=== PATIENT | female | born 1965 | race Caucasian/White ===

== ENCOUNTER 2016-09-21 16:35 | Emergency (ER) | payer BC ==
[2016-09-21 17:08] VITALS: BP 127/78
--- NOTE | 2016-09-21 17:10 | EDM.PDOC ---
ED HPI Trauma - General Chief Complaint: Upper Extremity Injury/Pain Stated Complaint: PAIN RT HAND Time Seen by Provider: 09/21/16 16:51 - History of Present Illness INITIAL COMMENTS - FREE TEXT/NARRATIVE: HISTORY AND PHYSICAL: History of present illness: Patient 31-year-old female presents with cervical pain and swelling of her right hand that occurred when she was lifting a box he states he felt a pop and now has an area of fullness between her second and third interdigital space on the dorsal aspect of her right knee and associated pain she has some limited range of motion secondary to discomfort. Review of systems: As per history of present illness and below otherwise all systems reviewed and negative. Past medical history: As per history of present illness and as reviewed below otherwise noncontributory. Surgical history: As per history of present illness and as reviewed below otherwise noncontributory. Social history: No reported history of drug or alcohol abuse. Family history: As per history of present illness and as reviewed below otherwise noncontributory. Physical exam: HEENT: Atraumatic, normocephalic, pupils reactive, negative for conjunctival pallor or scleral icterus, mucous membranes moist, throat clear, neck supple, nontender, trachea midline. Lungs: Clear to auscultation, breath sounds equal bilaterally, chest nontender. Heart: S1S2, regular, negative for clicks, rubs, or JVD. Abdomen: Soft, nondistended, nontender. Negative for masses or hepatosplenomegaly. Negative for costovertebral tenderness. Pelvis: Stable nontender. Genitourinary: Deferred. Rectal: Deferred. Extremities: Patient has noted tenderness palpation with a fullness and slight swelling between the second and third interdigital space on the dorsal aspect of her hand CMS and neurovascular exams unremarkable Neuro: Awake, alert, oriented. Cranial nerves II through XII unremarkable. Cerebellum unremarkable. Motor and sensory unremarkable throughout. Exam nonfocal. Diagnostics: X-ray right hand Therapeutics: None Impression: #1 right hand injury Definitive disposition and diagnosis as appropriate pending reevaluation and review of above. Allergies/ADRs: Allergies cefaclor [From Ceclor] Allergy (Verified 11/02/13 13:20) Anaphylactic Shock milk Allergy (Verified 11/02/13 13:20) Airway Tightness morphine Allergy (Verified 11/02/13 13:20) Vomiting prednisone Allergy (Verified 05/21/16 09:19) Hives Home Medications: Ambulatory Orders Citalopram [Citalopram HBr] 40 mg PO DAILY 11/02/13 [Confirmed 05/26/16] Cyclobenzaprine [Flexeril] 10 mg PO TID PRN 11/02/13 [Confirmed 05/26/16] Furosemide [Lasix] 20 mg PO DAILY 11/02/13 [Confirmed 05/21/16] Albuterol Sulfate [Ventolin Hfa] 1 puff INH ASDIRECTED PRN 05/21/16 [Confirmed 05/21/16] Cyanocobalamin/FA/Pyridoxine [Folbee] 1 tab PO DAILY 05/21/16 [Confirmed ] Pantoprazole Sodium 40 mg PO DAILY 05/21/16 [Confirmed 05/21/16] Phentermine/Topiramate [Qsymia 7.5 mg-46 mg Capsule] 1 each PO DAILY 05/26/16 [ Confirmed 05/26/16] Phenylephrine/Dm/Acetaminop/Gg [Tylenol Cold & Flu Severe Cplt] 2 each PO Q4H PRN 05/26/16 [Confirmed 05/26/16] Pramipexole [Mirapex] 0.5 mg PO TID 05/26/16 [Confirmed 05/26/16] Ibuprofen [Motrin] 400 mg PO Q4H PRN #0 tablet 05/27/16 Ondansetron [Zofran ODT] 4 mg PO Q4H PRN #10 tab.dis 05/27/16 Past Medical History HEENT History: Reports: Other (see below) Other HEENT History: wears glasses Cardiovascular History: Reports: Hypertension Other Cardiovascular History: hx hypertension before losing 100lb following bariatric surgery Respiratory History: Reports: Asthma, Other (see below) Other Respiratory History: mild asthma Gastrointestinal History: Reports: GERD Genitourinary History: Reports: Renal calculus 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: , Other (see below) Other OB/BYN History: breast reduction Musculoskeletal History: Reports: Arthritis, Back pain, chronic, Fibromyalgia Psychiatric History: Reports: Anxiety, Depression Endocrine/Metabolic History: Reports: None Hematologic History: Reports: Blood transfusion(s) Other Hematologic History: states had transfusion following her tonsillectomy - Infectious Disease History Infectious Disease History: Reports: Chicken pox - Past Surgical History Head Surgeries/Procedures: Reports: None HEENT Surgical History: Reports: Tonsillectomy Cardiovascular Surgical History: Reports: None Respiratory Surgical History: Reports: None GI Surgical History: Reports: Bariatric procedure, Guy fundoplication Female Surgical History: Reports: section, Hysterectomy, Salpingo- oophorectomy Endocrine Surgical History: Reports: None Musculoskeletal Surgical History: Reports: Arthroscopic knee Other Musculoskeletal Surgeries/Procedures:: hand surgery x6 including bilat. CTR, tendon releases and bone graft to left thumb, right knee arthroscopy x2 Social & Family History - Family History Family Medical History: Noncontributory - Tobacco Use Smoking Status *Q: Former Smoker Month Tobacco Last Used: quit smoking 18 yrs ago Second Hand Smoke Exposure: No - Caffeine Use Caffeine Use: Reports: None - Alcohol Use Days Per Week of Alcohol Use: 2 Number of Drinks Per Day: 1 Total Drinks Per Week: 2 - Recreational Drug Use Recreational Drug Use: No Drug Use in Last 12 Months: No Review of Systems - Review of Systems Review Of Systems: ROS reveals no pertinent complaints other than HPI. Trauma Exam - Physical Exam Exam: See Below (See dictation) Course - Vital Signs Last Recorded V/S: Last Vital Signs Temp 36.8 C 09/21/16 16:53 Pulse 85 09/21/16 16:53 Resp 16 09/21/16 16:53 BP 127/78 09/21/16 16:53 Pulse Ox 97 09/21/16 16:53 - Orders/Labs/Meds Orders: Active Orders 24 hr Category Date Time Status Hand 2V Rt [CR] Stat Exams 09/21/16 17:08 Taken Departure - Departure Time of Disposition: 17:58 Disposition: Home, Self-Care 01 Condition: good Clinical Impression: Hand injury Referrals: Corrina Jones DO [Primary Care Provider] - Forms: ED Department Discharge Additional Instructions: The following information is given to patients seen in the emergency department who are being discharged to home. This information is to outline your options for follow-up care. We provide all patients seen in our emergency department with a follow-up referral. The need for follow-up, as well as the timing and circumstances, are variable depending upon the specifics of your emergency department visit. If you don't have a primary care physician on staff, we will provide you with a referral. We always advise you to contact your personal physician following an emergency department visit to inform them of the circumstance of the visit and for follow-up with them and/or the need for any referrals to a consulting specialist. The emergency department will also refer you to a specialist when appropriate. This referral assures that you have the opportunity for followup care with a specialist. All of these measure are taken in an effort to provide you with optimal care, which includes your followup. Under all circumstances we always encourage you to contact your private physician who remains a resource for coordinating your care. When calling for followup care, please make the office aware that this follow-up is from your recent emergency room visit. If for any reason you are refused follow-up, please contact the [facility] emergency department at and asked to speak to the emergency department charge nurse. [facility] [address] [place] [id number] Splint as directed sling as directed Rachanarin, as directed call schedule appointment with hand clinic above return as needed as discussed - My Orders Last 24 Hours: My Active Orders 09/21/16 17:08 Hand 2V Rt [CR] Stat - Assessment/Plan Last 24 Hours: My Active Orders 09/21/16 17:08 Hand 2V Rt [CR] Stat
--- NOTE | 2016-09-22 14:12 | CR ---
EXAM DATE: 09/21/16 PATIENT'S AGE: 51 Patient: JOAN GEE Facility: [place], [place] Site . Site : 1965 Study: XRay Extremity hand [id number]/28/[id number] 5:16:32 PM Ordering Physician: Noam Rogers Final Report: INDICATION: pain TECHNIQUE: 3 views of the right hand COMPARISON: None FINDINGS: Bones: No fractures or bone lesions. Joint spaces: Unremarkable. Soft tissues: Soft tissue swelling. IMPRESSION: No acute bony abnormality. Dictated by Flaco Hernandez MD @ 09/21/2016 5:37:23 PM Dictated by: Flaco Hernandez MD @ 09/21/2016 17:39:35 (Electronic Signature) Report Signed by Proxy and Original Signed Document filed in the Medical Record. MTDD
== END 2016-09-21 18:27 | disposition home or self-care (01) ==
LOC: MW.ED 16:35
DX: S69.91XA Unspecified injury of right wrist, hand and finger(s), initial encounter (principal); I10 Essential (primary) hypertension; J45.909 Unspecified asthma, uncomplicated; K21.9 Gastro-esophageal reflux disease without esophagitis; F41.8 Other specified anxiety disorders; M19.90 Unspecified osteoarthritis, unspecified site; Z98.84 Bariatric surgery status; Z98.890 Other specified postprocedural states; Z90.710 Acquired absence of both cervix and uterus; Z87.891 Personal history of nicotine dependence; Z79.899 Other long term (current) drug therapy; Z88.5 Allergy status to narcotic agent; Z88.8 Allergy status to other drugs, medicaments and biological substances; Z91.011 Allergy to milk products; X50.0XXA Overexertion from strenuous movement or load, initial encounter
CPT/HCPCS: 73120; 99283; A4566; 99282

== ENCOUNTER 2017-01-05 10:50 | Emergency (ER) | payer BC ==
[2017-01-05] MEDS ORDERED: Nitroglycerin 0.4 MG Tab.SL SL ONE (11:14)
[2017-01-05] MEDS ORDERED: Ketorolac 30 MG/ML SDV IVPUSH ONE (11:14)
[2017-01-05] MEDS ORDERED: Alum Hydrox/Mag Hydrox/Simeth 15 ML, Metoclopramide 5 MG, Lidocaine 2% 5 ML PO ONE ×3 (11:14)
[2017-01-05] MEDS ORDERED: Aspirin 81 MG Tab.Chew PO ONE (11:14)
[2017-01-05] MEDS ORDERED: Famotidine 20 MG/2 ML SDV IVPUSH ONE (11:14)
[2017-01-05 11:49] LABS: CHLORIDE,CL 108 mmol/L (98-110); SODIUM,NA 140 mmol/L (136-146)
--- NOTE | 2017-01-05 12:44 | CR ---
EXAMINATION: Two-view chest (PA and Lateral views). HISTORY: Pain. FINDINGS: The trachea is midline. The cardiomediastinal silhouette is within normal limits. No pulmonary infil trates, effusions or pneumothorax. Osseous structures appear unremarkable. IMPRESSION: No acute cardiopulmonary process.
[2017-01-05] MEDS ORDERED: Iopamidol 755 MG/ML 500 ML Multipack Bottle IVPUSH STA (13:36)
--- NOTE | 2017-01-05 13:47 | CT ---
CT of the abdomen and pelvis with contrast. HISTORY: Pain TECHNIQUE: Axial CT images were obtained of the abdomen and pelvis following administration of 100 m L of Isovue-370 in the left antecubital fossa without complication. Coronal and sagittal reconstruct ions obtained. FINDINGS: The lung bases are clear, no pleural effusion. The liver, spleen, adrenal glands, and pancreas appear unremarkable. The gallbladder is normal. Ther e is no bulky retroperitoneal lymphadenopathy or abdominal ascites. Postsurgical changes noted secon seymour to gastric bypass. The kidneys enhance and function symmetrically without evidence of obstructive uropathy. There is a punctate nonobstructing right renal stone. The large and small bowel are normal caliber without evidence of obstruction. No focal pericolonic i nflammation or stranding. The appendix appears normal. Urinary bladder is normal. No bulky pelvic ly mphadenopathy. No free pelvic fluid. No suspicious osseous bodies demonstrated. Severe joint space narrowing is noted within the left hip . IMPRESSION: 1. No acute findings demonstrated within the abdomen or pelvis. 2. Punctate nonobstructing right renal stone. 3. Postsurgical changes noted secondary to gastric bypass. 4. Severe degenerative changes and joint space narrowing within the left hip.
--- NOTE | 2017-01-05 13:54 | EDM.PDOC ---
ED HPI GENERAL MEDICAL PROBLEM - General Chief Complaint: Cardiovascular Problem Stated Complaint: CHEST PAINS Time Seen by Provider: 01/05/17 11:10 Source of Information: Reports: Patient History Limitations: Reports: No Limitations - History of Present Illness INITIAL COMMENTS - FREE TEXT/NARRATIVE: History of present illness: [51-year-old female comes in complaining of upper epigastric pain. Patient feels that his GERD but also is concerned that it could be of cardiac nature. Patient has a long-standing family history of cardiac problems were her father at 67 and her brother also in the same a drainage. Patient has a protracted history of several skin removal surgeries that she also feels could be contributory to some of this pain.] Review of systems: As per history of present illness and below otherwise all systems reviewed and negative. Past medical history: As per history of present illness and as reviewed below otherwise noncontributory. Surgical history: As per history of present illness and as reviewed below otherwise noncontributory. Social history: No reported history of drug or alcohol abuse. Family history: As per history of present illness and as reviewed below otherwise noncontributory. Physical exam: HEENT: Atraumatic, normocephalic, pupils reactive, negative for conjunctival pallor or scleral icterus, mucous membranes moist, throat clear, neck supple, nontender, trachea midline. Lungs: Clear to auscultation, breath sounds equal bilaterally, chest nontender. Heart: S1S2, regular, negative for clicks, rubs, or JVD. Abdomen: Soft, left lower quadrant pain to minimal palpation as well as right femoral pain, Negative for masses or hepatosplenomegaly. Negative for costovertebral tenderness. Pelvis: Stable nontender. Genitourinary: Deferred. Rectal: Deferred. Extremities: Atraumatic, negative for cords or calf pain. Neurovascular unremarkable. Neuro: Awake, alert, oriented. Cranial nerves II through XII unremarkable. Cerebellum unremarkable. Motor and sensory unremarkable throughout. Exam nonfocal. Skin: Areas of erythema at various scar sites the patient indicates her painful Diagnostics: [CBC, CMP, troponin, EKG, chest x-ray, CT of abdomen with contrast] Therapeutics: [] Impression: [Abdominal pain] Plan: [Follow-up with PCP, OTC antacids as Arty has] Definitive disposition and diagnosis as appropriate pending reevaluation and review of above. CHEST Pain Score (Numeric/FACES): 3 - Related Data Allergies Allergy/AdvReac Type Severity Reaction Status Date / Time cefaclor [From Ceclor] Allergy Anaphylactic Verified 01/05/17 11:12 Shock milk Allergy Airway Verified 01/05/17 11:12 Tightness morphine Allergy Vomiting Verified 01/05/17 11:12 prednisone Allergy Hives Verified 01/05/17 11:12 Home Meds: Home Meds Citalopram [Citalopram HBr] 40 mg PO DAILY 11/02/13 [History] Furosemide [Lasix] 20 mg PO DAILY 11/02/13 [History] Albuterol Sulfate [Ventolin Hfa] 1 puff INH ASDIRECTED PRN 05/21/16 [History] Cyanocobalamin/FA/Pyridoxine [Folbee] 1 tab PO DAILY 05/21/16 [History] Pramipexole [Mirapex] 0.5 mg PO TID 05/26/16 [History] Past Medical History - Past Health History Medical/Surgical History: Denies Medical/Surgical History HEENT History: Reports: Other (See Below) Other HEENT History: wears glasses Cardiovascular History: Reports: Hypertension Other Cardiovascular History: hx hypertension before losing 100lb following bariatric surgery Respiratory History: Reports: Asthma, Other (See Below) Other Respiratory History: mild asthma Gastrointestinal History: Reports: GERD Genitourinary History: Reports: Renal Calculus 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: , Other (See Below) Other OB/BYN History: breast reduction Musculoskeletal History: Reports: Arthritis, Back Pain, Chronic, Fibromyalgia Psychiatric History: Reports: Anxiety Endocrine/Metabolic History: Reports: None Hematologic History: Reports: Blood Transfusion(s) Other Hematologic History: states had transfusion following her tonsillectomy - Infectious Disease History Infectious Disease History: Reports: Chicken Pox - Past Surgical History Head Surgeries/Procedures: Reports: None Cardiovascular Surgical History: Reports: None GI Surgical History: Reports: Bariatric Procedure, Guy Fundoplication Female Surgical History: Reports: Section, Hysterectomy, Salpingo- Oophorectomy Endocrine Surgical History: Reports: None Musculoskeletal Surgical History: Reports: Arthroscopic Knee Social & Family History - Family History Family Medical History: Noncontributory - Tobacco Use Smoking Status *Q: Never Smoker Month Tobacco Last Used: quit smoking 18 yrs ago Second Hand Smoke Exposure: No - Caffeine Use Caffeine Use: Reports: None - Alcohol Use Days Per Week of Alcohol Use: 2 Number of Drinks Per Day: 1 Total Drinks Per Week: 2 - Recreational Drug Use Recreational Drug Use: No Drug Use in Last 12 Months: No ED ROS GENERAL - Review of Systems Review Of Systems: See Below (See history of present illness) ED EXAM, GENERAL - Physical Exam Exam: See Below (See history of present illness) Course - Vital Signs Last Recorded V/S: Last Vital Signs Temp 36.2 C 01/05/17 13:26 Pulse 62 01/05/17 13:26 Resp 18 01/05/17 13:26 BP 130/84 01/05/17 13:26 Pulse Ox 100 01/05/17 13:26 - Orders/Labs/Meds Orders: Active Orders 24 hr Category Date Time Status Cardiac Monitoring [RC] . DIRECTED Care 01/05/17 11:14 Ordered EKG Documentation Completion [RC] STAT Care 01/05/17 11:14 Ordered Labs: Laboratory Tests 01/05/17 01/05/17 01/05/17 Range/Units 11:05 11:05 11:05 WBC 5.91 (4.0-11.0) K/uL RBC 3.96 L (4.30-5.90) M/uL Hgb 11.0 L (12.0-16.0) g/dL Hct 34.3 L (36.0-46.0) % MCV 86.6 (80.0-98.0) fL MCH 27.8 (27.0-32.0) pg MCHC 32.1 (31.0-37.0) g/dL RDW Std Deviation 44.7 (28.0-62.0) fl RDW Coeff of Smita 14 (11.0-15.0) % Plt Count 319 (150-400) K/uL MPV 9.20 (7.40-12.00) fL Neut % (Auto) 63.2 (48.0-80.0) % Lymph % (Auto) 25.5 (16.0-40.0) % Gove % (Auto) 9.6 (0.0-15.0) % Eos % (Auto) 1.4 (0.0-7.0) % Baso % (Auto) 0.3 (0.0-1.5) % Neut # (Auto) 3.7 (1.4-5.7) K/uL Lymph # (Auto) 1.5 (0.6-2.4) K/uL Gove # (Auto) 0.6 (0.0-0.8) K/uL Eos # (Auto) 0.1 (0.0-0.7) K/uL Baso # (Auto) 0.0 (0.0-0.1) K/uL Nucleated RBC % 0.0 /100WBC Nucleated RBCs # 0 K/uL Sodium 140 (136-146) mmol/L Potassium 4.0 (3.5-5.1) mmol/L Chloride 108 (98-110) mmol/L Carbon Dioxide 24 (21-31) mmol/L BUN 19 (6.0-23.0) mg/dL Creatinine 0.9 (0.6-1.5) mg/dL Est Cr Clr Drug Dosing 63.86 mL/min Estimated GFR (MDRD) > 60.0 ml/min Glucose 80 (60-110) mg/dL Calcium 9.3 (8.8-10.8) mg/dL Total Bilirubin 0.5 (0.1-1.5) mg/dL AST 27 (5-40) IU/L ALT 31 (8-54) IU/L Alkaline Phosphatase 108 (40-150) Troponin I < 0.10 (0.0-0.29) NG/ML Total Protein 7.2 (6.0-8.0) g/dL Albumin 4.1 (3.5-5.0) g/dL Globulin 3.1 (2.0-3.5) g/dL Albumin/Globulin Ratio 1.3 (1.3-2.8) Amylase 51 (10-90) U/L Lipase 58 (7-80) U/L Urine Color Urine Appearance Urine pH (5.0-8.0) Ur Specific Harrison (1.001-1.035) Urine Protein (NEGATIVE) mg/dL Urine Glucose (UA) (NEGATIVE) mg/dL Urine Ketones (NEGATIVE) mg/dL Urine Occult Blood (NEGATIVE) Urine Nitrite (NEGATIVE) Urine Bilirubin (NEGATIVE) Urine Urobilinogen (<2.0) EU/dL Ur Leukocyte Esterase (NEGATIVE) Urine RBC (0-2/HPF) Urine WBC (0-5/HPF) Ur Epithelial Cells (NONE-FEW) Urine Bacteria (NEGATIVE) Urine HCG, Qual (NEGATIVE) 01/05/17 01/05/17 Range/Units 11:15 11:15 WBC (4.0-11.0) K/uL RBC (4.30-5.90) M/uL Hgb (12.0-16.0) g/dL Hct (36.0-46.0) % MCV (80.0-98.0) fL MCH (27.0-32.0) pg MCHC (31.0-37.0) g/dL RDW Std Deviation (28.0-62.0) fl RDW Coeff of Smita (11.0-15.0) % Plt Count (150-400) K/uL MPV (7.40-12.00) fL Neut % (Auto) (48.0-80.0) % Lymph % (Auto) (16.0-40.0) % Gove % (Auto) (0.0-15.0) % Eos % (Auto) (0.0-7.0) % Baso % (Auto) (0.0-1.5) % Neut # (Auto) (1.4-5.7) K/uL Lymph # (Auto) (0.6-2.4) K/uL Gove # (Auto) (0.0-0.8) K/uL Eos # (Auto) (0.0-0.7) K/uL Baso # (Auto) (0.0-0.1) K/uL Nucleated RBC % /100WBC Nucleated RBCs # K/uL Sodium (136-146) mmol/L Potassium (3.5-5.1) mmol/L Chloride (98-110) mmol/L Carbon Dioxide (21-31) mmol/L BUN (6.0-23.0) mg/dL Creatinine (0.6-1.5) mg/dL Est Cr Clr Drug Dosing mL/min Estimated GFR (MDRD) ml/min Glucose (60-110) mg/dL Calcium (8.8-10.8) mg/dL Total Bilirubin (0.1-1.5) mg/dL AST (5-40) IU/L ALT (8-54) IU/L Alkaline Phosphatase (40-150) Troponin I (0.0-0.29) NG/ML Total Protein (6.0-8.0) g/dL Albumin (3.5-5.0) g/dL Globulin (2.0-3.5) g/dL Albumin/Globulin Ratio (1.3-2.8) Amylase (10-90) U/L Lipase (7-80) U/L Urine Color YELLOW Urine Appearance CLEAR Urine pH 5.5 (5.0-8.0) Ur Specific Harrison 1.015 (1.001-1.035) Urine Protein NEGATIVE (NEGATIVE) mg/dL Urine Glucose (UA) NEGATIVE (NEGATIVE) mg/dL Urine Ketones NEGATIVE (NEGATIVE) mg/dL Urine Occult Blood NEGATIVE (NEGATIVE) Urine Nitrite NEGATIVE (NEGATIVE) Urine Bilirubin NEGATIVE (NEGATIVE) Urine Urobilinogen 0.2 (<2.0) EU/dL Ur Leukocyte Esterase TRACE (NEGATIVE) Urine RBC 0-2 (0-2/HPF) Urine WBC 1-3 (0-5/HPF) Ur Epithelial Cells FEW (NONE-FEW) Urine Bacteria FEW (NEGATIVE) Urine HCG, Qual NEGATIVE (NEGATIVE) Meds: Medications Discontinued Medications Generic Name Dose Route Start Last Admin Trade Name Razaq PRN Reason Stop Dose Admin Aspirin 324 mg 01/05/17 11:14 01/05/17 11:25 Aspirin PO 01/05/17 11:15 324 mg ONETIME ONE Administration Al Hydroxide/Mg Hydroxide 15 0 ml 01/05/17 11:14 01/05/17 11:31 ml/ Metoclopramide HCl 5 mg/ PO 01/05/17 11:15 1 each Lidocaine HCl 5 ml ONETIME ONE Administration Famotidine 20 mg 01/05/17 11:14 01/05/17 11:27 Pepcid IVPUSH 01/05/17 11:15 20 mg ONETIME ONE Administration Iopamidol 100 ml 01/05/17 13:36 01/05/17 13:36 Isovue Multipack-370 (76%) IVPUSH 01/05/17 13:37 100 ml ONETIME STA Administration Ketorolac Tromethamine 30 mg 01/05/17 11:14 01/05/17 11:29 Toradol IVPUSH 01/05/17 11:15 Not Given ONETIME ONE Nitroglycerin 0.4 mg 01/05/17 11:14 01/05/17 11:25 Nitrostat SL 01/05/17 11:15 0.4 mg ONETIME ONE Administration Departure - Departure Time of Disposition: 13:52 Disposition: Home, Self-Care 01 Condition: Good Clinical Impression: Gastroesophageal reflux disease Forms: ED Department Discharge Additional Instructions: The following information is given to patients seen in the emergency department who are being discharged to home. This information is to outline your options for follow-up care. We provide all patients seen in our emergency department with a follow-up referral. The need for follow-up, as well as the timing and circumstances, are variable depending upon the specifics of your emergency department visit. If you don't have a primary care physician on staff, we will provide you with a referral. We always advise you to contact your personal physician following an emergency department visit to inform them of the circumstance of the visit and for follow-up with them and/or the need for any referrals to a consulting specialist. The emergency department will also refer you to a specialist when appropriate. This referral assures that you have the opportunity for follow-up care with a specialist. All of these measure are taken in an effort to provide you with optimal care, which includes your follow-up. Under all circumstances we always encourage you to contact your private physician who remains a resource for coordinating your care. When calling for follow-up care, please make the office aware that this follow-up is from your recent emergency room visit. If for any reason you are refused follow-up, please contact the [facility] Emergency Department at and asked to speak to the emergency department charge nurse. Follow-up the primary care provider to address return to ER as needed as discussed - My Orders Last 24 Hours: My Active Orders 01/05/17 11:14 Cardiac Monitoring [RC] . DIRECTED EKG Documentation Completion [RC] STAT - Assessment/Plan Last 24 Hours: My Active Orders 01/05/17 11:14 Cardiac Monitoring [RC] . DIRECTED EKG Documentation Completion [RC] STAT
[2017-01-05 14:19] VITALS: BP 126/82
== END 2017-01-05 14:06 | disposition home or self-care (01) ==
LOC: MW.ED 10:50
DX: K21.9 Gastro-esophageal reflux disease without esophagitis (principal); I10 Essential (primary) hypertension; J45.909 Unspecified asthma, uncomplicated; M19.90 Unspecified osteoarthritis, unspecified site; Z90.710 Acquired absence of both cervix and uterus; Z90.721 Acquired absence of ovaries, unilateral; Z98.890 Other specified postprocedural states; Z79.899 Other long term (current) drug therapy; Z88.5 Allergy status to narcotic agent; Z88.8 Allergy status to other drugs, medicaments and biological substances; Z91.011 Allergy to milk products
CPT/HCPCS: 36415; 71020; 74177; 80053; 81001; 81025; 82150; 83690; 84484; 85025; 93005; 96374; 99285; A9270; Q9967; 99282

== ENCOUNTER 2018-03-08 11:32 | Inpatient (IN) | payer BC ==
[2018-03-08] MEDS ORDERED: Clindamycin Phosphate in D5W 900 MG in Premix Bag 1 BAG IV SCH ×2 (12:00)
[2018-03-08] MEDS ORDERED: fentaNYL 100 MCG/2 ML SDV ONE (12:13)
[2018-03-08] MEDS ORDERED: Glycopyrrolate 0.2 MG/ML SDV ONE (12:13)
[2018-03-08] MEDS ORDERED: Ondansetron 4 MG/2 ML SDV ONE (12:13)
[2018-03-08] MEDS ORDERED: Phenylephrine/Normal Saline 100 MCG/ML 10 ML Syringe ONE (12:13)
[2018-03-08] MEDS ORDERED: Lidocaine 2% 5 ML SDV ONE (12:13)
[2018-03-08] MEDS ORDERED: Midazolam 1 MG/ML 2 ML SDV ONE (12:13)
[2018-03-08] MEDS ORDERED: Propofol 200 MG/20 ML SDV ONE (12:13)
[2018-03-08] MEDS: Lactated Ringers 1,000 ML IV SCH ×3 (12:26→22:40)
[2018-03-08] MEDS: Clindamycin Phosphate in D5W 900 MG in Premix Bag 1 BAG IV SCH ×4 (12:47→23:04)
--- NOTE | 2018-03-08 12:58 | PCM.PREANE ---
Preanesthetic Assessment - Anesthesia/Transfusion/Family Hx Anesthesia History: Prior Anesthesia Without Reaction Family History of Anesthesia Reaction: No Transfusion History: No Prior Transfusion(s) - Review of Systems General: No Symptoms Pulmonary: No Symptoms Cardiovascular: No Symptoms Gastrointestinal: No Symptoms Neurological: No Symptoms Other: Reports: None - Physical Assessment NPO Status Date: 03/07/18 O2 Sat by Pulse Oximetry: 98 Respiratory Rate: 16 Vital Signs: Last Vital Signs Temp 36.3 C 03/08/18 12:26 Pulse 71 03/08/18 12:26 Resp 16 03/08/18 12:26 BP 131/78 03/08/18 12:26 Pulse Ox 98 03/08/18 12:26 Height: 1.6 m Weight: 91.626 kg ASA Class: 2 Mental Status: Alert & Oriented x3 Airway Class: Mallampati = 1 Dentition: Reports: Normal Dentition ROM/Head Extension: Full Lungs: Clear to Auscultation, Normal Respiratory Effort Cardiovascular: Regular Rate, Regular Rhythm - Allergies Allergies/Adverse Reactions: Allergies Allergy/AdvReac Type Severity Reaction Status Date / Time cefaclor [From Ceclor] Allergy Anaphylactic Verified 03/03/18 10:56 Shock milk Allergy Airway Verified 03/03/18 10:56 Tightness morphine Allergy Vomiting Verified 03/03/18 10:56 prednisone Allergy Hives Verified 03/03/18 10:56 - Blood Blood Available: Yes - Anesthesia Plan Pre-Op Medication Ordered: None - Acknowledgements Anesthesia Type Planned: Spinal Pt an Appropriate Candidate for the Planned Anesthesia: Yes Alternatives and Risks of Anesthesia Discussed w Pt/Guardian: Yes Pt/Guardian Understands and Agrees with Anesthesia Plan: Yes Additional Comments: PMH: htn and asthma are inactive problems, has gerd and anxiety. 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: Musculoskeletal History: Reports: Arthritis, Back Pain, Chronic, Fibromyalgia Psychiatric History: Reports: Anxiety, Depression Endocrine/Metabolic History: Reports: Obesity/BMI 30+ Hematologic History: Reports: Blood Transfusion(s) Other Hematologic History: states had transfusion following her tonsillectomy Dermatologic History: Reports: None - Infectious Disease History Infectious Disease History: Reports: Chicken Pox - Past Surgical History Head Surgeries/Procedures: Reports: None HEENT Surgical History: Reports: Tonsillectomy Cardiovascular Surgical History: Reports: None Respiratory Surgical History: Reports: None GI Surgical History: Reports: Bariatric Procedure, Guy Fundoplication Other GI Surgeries/Procedures: tummy tuck Female Surgical History: Reports: Breast Reduction, Section, Hysterectomy, Salpingo-Oophorectomy Endocrine Surgical History: Reports: None Musculoskeletal Surgical History: Reports: Arthroscopic Knee, Carpal Tunnel Other Musculoskeletal Surgeries/Procedures:: hand surgery x6 including bilat. CTR, tendon releases and bone graft to left thumb, right knee arthroscopy x2 Dermatological Surgical History: Reports: Plastic Surgical Reconstruction/Repair - SUBSTANCE USE Smoking Status *Q: Former Smoker Tobacco Use Within Last Twelve Months: No Recreational Drug Use History: No - HOME MEDS Home Medications: Home Meds Citalopram [Citalopram HBr] 20 mg PO DAILY 11/02/13 [History] Furosemide [Lasix] 20 mg PO DAILY 11/02/13 [History] Albuterol Sulfate [Ventolin Hfa] 1 puff INH ASDIRECTED PRN 05/21/16 [History] Cyanocobalamin/Folic AC/Vit B6 [Folbee] 1 tab PO DAILY 05/21/16 [History] Pramipexole [Mirapex] 0.5 mg PO TID 05/26/16 [History] - CURRENT (IN HOUSE) MEDS Current Meds: Current Medications Lactated Ringer's (Ringers, Lactated) 1,000 mls @ 125 mls/hr IV ASDIRECTED JOELLE Last Admin: 03/08/18 12:26 Dose: 125 mls/hr Clindamycin Phosphate 900 mg/ (Premix) 50 mls @ 100 mls/hr IV ONETIME JOELLE Last Admin: 03/08/18 12:47 Dose: 100 mls/hr Discontinued Medications Fentanyl (Sublimaze) Confirm Administered Dose 100 mcg .ROUTE .STK-MED ONE Stop: 03/08/18 12:14 Glycopyrrolate (Robinul) Confirm Administered Dose 0.2 mg .ROUTE .STK-MED ONE Stop: 03/08/18 12:14 Clindamycin Phosphate 900 mg/ (Premix) 50 mls @ 100 mls/hr IV ONETIME JOELLE Lidocaine (Xylocaine-Mpf 2%) Confirm Administered Dose 5 ml .ROUTE .STK-MED ONE Stop: 03/08/18 12:14 Midazolam HCl (Versed 1 Mg/Ml) Confirm Administered Dose 2 mg .ROUTE .STK-MED ONE Stop: 03/08/18 12:14 Ondansetron HCl (Zofran) Confirm Administered Dose 4 mg .ROUTE .STK-MED ONE Stop: 03/08/18 12:14 Phenylephrine HCl (Phenylephrine In Ns 100 Mcg/Ml) Confirm Administered Dose 1 mg .ROUTE .STK-MED ONE Stop: 03/08/18 12:14 Propofol (Diprivan 20 Ml) Confirm Administered Dose 200 mg .ROUTE .STK-MED ONE Stop: 03/08/18 12:14 Tranexamic Acid (Cyklokapron) 2,000 mg IV ONETIME ONE Stop: 03/08/18 12:01
[2018-03-08] MEDS ORDERED: Sodium Chloride 0.9% 20 ML ONE (13:19)
[2018-03-08] MEDS ORDERED: ceFAZolin 1 GM Vial ONE (13:19)
--- NOTE | 2018-03-08 15:04 | PCM.OPNOTE ---
- General Post-Op/Procedure Note Date of Surgery/Procedure: 03/08/18 Operative Procedure(s): left anterior total hip arthroplasty Findings: severe OA Pre Op Diagnosis: left hip osteoarthritis Post-Op Diagnosis: same Anesthesia Technique: General LMA, Spinal Primary Surgeon: Miah Mathew Mai Animal Nurse: Ingrid Alvarez Pathology: femoral head EBL in mLs: 300 Complications: none Condition: Good
[2018-03-08] MEDS ORDERED: diphenhydrAMINE 25 MG Cap PO PRN (15:10)
[2018-03-08] MEDS ORDERED: HYDROmorphone 1 MG/ML Syringe IVPUSH PRN (15:10)
[2018-03-08] MEDS ORDERED: Acetaminophen/HYDROcodone 325-5 MG Tab PO PRN (15:10)
[2018-03-08] MEDS ORDERED: Aluminum Hydroxide/Magnesium Hydroxide/Simethicone Susp 30 ML Cup PO PRN (15:10)
[2018-03-08] MEDS ORDERED: Bisacodyl 10 MG Supp RECTAL PRN (15:10)
[2018-03-08] MEDS ORDERED: Ketorolac 30 MG/ML SDV IVPUSH PRN (15:10)
[2018-03-08] MEDS ORDERED: Ondansetron 4 MG/2 ML SDV IV PRN (15:10)
[2018-03-08] MEDS ORDERED: Albuterol 8 GM Inhaler INH PRN (15:11)
[2018-03-08] MEDS ORDERED: Promethazine 25 MG/ML SDV ONE (15:32)
[2018-03-08] MEDS: Acetaminophen 325 MG Tab PO PRN ×2 (17:42→22:40)
[2018-03-08] MEDS: Docusate Sodium 100 MG Cap PO SCH (20:42)
[2018-03-08] MEDS: Pramipexole 0.25 MG Tab PO SCH (21:23)
--- NOTE | 2018-03-08 23:14 | OR ---
SURGEON: Miah Correa MD DATE OF PROCEDURE: 03/08/2018 OPERATIONS RESEARCH SCIENTIST: Ingrid Alvarez PA-C. PREOPERATIVE DIAGNOSIS: Left hip osteoarthritis. POSTOPERATIVE DIAGNOSIS: Left hip osteoarthritis. OPERATION PERFORMED: Left anterior total hip arthroplasty. ANESTHESIA: Spinal and general. COMPLICATIONS: None. ESTIMATED BLOOD LOSS: 10 mL. SPECIMENS: Femoral head. IMPLANTS: Ace Continuum trabecular metal shell with cluster holes, 54 mm outer diameter, one 6.5 x 30 mm length bone screw; Vivacit-E neutral liner, 36 mm inner diameter; M/L Taper press-fit stem, size 9 extended offset, reduced neck length, Biolox delta femoral head 36 mm diameter, -3.5 neck length. INDICATIONS: The patient is a 52-year-old female with severe arthritis. She has failed conservative management due to modification therapy, injections, current pain on daily basis hindering activities, which undergo above procedure. She understands the risks, benefits, complications, including infection, neurovascular injury, continued pain, DVT, PE, stroke, [place], , leg-length discrepancy, fracture, dislocation, she wished to proceed. PROCEDURE IN DETAIL: The patient was seen in the preoperative area. Operative extremity was marked. The patient was transferred to operating room where spinal anesthetic was given. She was placed supine on Colon table and general anesthesia was induced. An LMA was placed. She received preop antibiotics, clindamycin 2 g TXA. Legs were placed in leg bars on Colon table with a narrow perineal post. Left hip was prepped and draped fashion in usual sterile fashion using alcohol followed by ChloraPrep. A formal time-out was taken identifying correct patient, procedure and extremity. An 8 to 9 cm incision starting just laterally ASIS going obliquely down the femur was made. Dissection was carried down to subcu tissues. Hemostasis was obtained. Fascia overlying the TFL lateral to lateral femoral cutaneous was opened and the interval between TFL and sartorius deep between abductors and rectus was opened. The anterior vessels were coagulated and the vastus lateralis fascia was opened. A deep Miguelangel tractor was placed. The indirect head of the rectus was released and the capsule was held and tagged with suture and then the deep retractors were placed. Neck was kept in saddle region 1 cm above the lesser trochanter and the head was removed. There was severe arthritis with severe synovitis within the hip with complete obliteration of the joint. The labral remnants were removed as well as the pulvinar and then the head measured about 48 to 49 mm and sequential reaming from 47 up to 53 mm was made going slightly superior and medially with excellent press fit. Once the bed was planned to make sure its level and then a Continuum trabecular metal shell with cluster holes was impacted with screw hole straight superiorly in 40 degrees abduction and 10 degrees of anteversion. Excellent press fit. There was no uncovering of the cup anteriorly. One straight superior bone screw was placed after drilling. The wound was irrigated out. The neutral liner was impacted. Leg was externally rotated, abducted, and extended. Superior capsule obturator, internus, and piriformis were released. Central canal finder was utilized and hip was sequentially broached up to size 10, which had a little proud above the neck cut. Trial was reduced neck length, extended offset based on preoperative templating the zero neck. This showed the hip to be long, but the offset to be slightly increased. Therefore, the hip was dislocated. Size 9 extended offset reduced neck length stem was impacted following the [place] version. The hip was trial reduced with a zero neck length. Printed overlay technique with the opposite side with fluoroscopy showed the hip to be slightly longer, so the hip was dislocated. After cleaning the Zhang taper, a 36 mm diameter head -3.5 neck length was impacted. Hip was then reduced. There was stable range of motion with no Shuck and two tag sutures were tied together. Wound was irrigated. The fascia was closed with #1 Vicryl, subcutaneous tissues with 2-0 Stratafix, skin with running 4-0 Monocryl, Dermabond tape, and Aquacel dressing. Patient was extubated in the operative room and transferred to the recovery room in stable condition. Sponge and needle counts were correct at the end of the case. No complications. The patient will take aspirin for DVT prophylaxis and weightbearing as tolerated. HENRI DOBBINS /[id number]
[2018-03-09] MEDS: Acetaminophen 325 MG Tab PO PRN ×3 (03:28→14:22)
[2018-03-09] MEDS: Pramipexole 0.25 MG Tab PO SCH ×2 (05:16→14:23)
[2018-03-09] MEDS: Lactated Ringers 1,000 ML IV SCH (07:05)
[2018-03-09] MEDS: Clindamycin Phosphate in D5W 900 MG in Premix Bag 1 BAG IV SCH ×4 (07:05→07:09)
--- NOTE | 2018-03-09 07:28 | PCM48HPAN ---
Post Anesthesia Note - EVALUATION WITHIN 48HRS OF ANESTHETIC Vital Signs in Normal Range: Yes Patient Participated in Evaluation: Yes Respiratory Function Stable: Yes Airway Patent: Yes Cardiovascular Function Stable: Yes Hydration Status Stable: Yes Pain Control Satisfactory: Yes Nausea and Vomiting Control Satisfactory: Yes Mental Status Recovered: Yes Resp Rate: 17
[2018-03-09] MEDS ORDERED: Sodium Chloride 0.9% 10 ML Syringe FLUSH PRN (07:32)
[2018-03-09] MEDS ORDERED: Sodium Chloride 0.9% 2.5 ML Syringe FLUSH PRN (07:32)
--- NOTE | 2018-03-09 07:35 | PCM.SN ---
- Free Text/Narrative Note: Subjective: Overall patient is doing well she has been up ambulating slightly. She still having a lot of pain. She is taking Tylenol only for pain. He wishes to have her [place] out. She is tolerating by mouth with no issues. She is not lightheaded Objective: Afebrile, vital signs stable Dressing is clean/dry/intact with no signs of discharge. She has minimal swelling in the thigh and none distally. There is normal sensation and motor with palpable pulses distally. Hemoglobin 9.7 A/P: POD #1 left SHANE with acute on chronic blood loss anemia - We'll watch hemoglobin. - Full weightbearing with walker and physical therapy - Aspirin for DVT prophylaxis - She does well she may leave later today otherwise likely tomorrow.
[2018-03-09] MEDS ORDERED: Citalopram 20 MG Tab PO SCH (09:00)
[2018-03-09] MEDS ORDERED: CYANOCOBALAMIN PO SCH (09:00)
[2018-03-09] MEDS ORDERED: VIT B6 PO SCH (09:00)
[2018-03-09] MEDS ORDERED: Aspirin 325 MG Tab PO SCH (09:00)
[2018-03-09] MEDS ORDERED: Furosemide 20 MG Tab PO SCH (09:00)
[2018-03-09] MEDS ORDERED: Pantoprazole 40 MG Tab.CR PO SCH (09:00)
[2018-03-09] MEDS ORDERED: Celecoxib 100 MG Cap PO SCH (09:00)
[2018-03-09] MEDS ORDERED: Famotidine 20 MG Tab PO SCH (09:00)
[2018-03-09] MEDS ORDERED: FOLIC AC PO SCH (09:00)
--- NOTE | 2018-03-09 09:24 | CR ---
EXAMINATION: Left hip HISTORY: Arthroplasty COMPARISON: 02/06/2018 TECHNIQUE: 3 views FINDINGS/IMPRESSION: Operative control films demonstrate placement of left total hip hardware in good position and alignment.
[2018-03-09] MEDS: Docusate Sodium 100 MG Cap PO SCH (10:02)
[2018-03-09 17:11] VITALS: BP 150/75
--- NOTE | 2018-03-09 17:54 | PCM.DCSUM1 ---
Discharge Summary - Hospital Course HPI Initial Comments: Patient is admitted for elective left hip replacement Diagnosis: Stroke: No - Discharge Data Discharge Date: 03/09/18 Discharge Disposition: Home, Self-Care 01 Condition: Good - Patient Summary/Data Operative Procedure(s) Performed: left anterior total hip arthroplasty Consults: Consultations 03/08/18 15:09 PT Evaluation and Treatment [CONS] Routine Hospital Course: Patient was admitted for elective left hip replacement. Postoperatively she was admitted to the floor where her diet was was advanced. He participated in physical therapy with weightbearing as tolerated with a walker. Her hemoglobin did decrease but was not symptomatic. She did well and was subsequently discharged home on postoperative day #1 with Celebrex. - Patient Instructions Diet: Usual Diet as Tolerated Activity: Apply Ice, As Tolerated, Full Weight Bearing Driving, Other: may drive when able Showering/Bathing: May Shower Wound/Incision Care: Do NOT Change Dressing Notify Provider of: Fever, Swelling and Redness, Drainage - Discharge Plan *PRESCRIPTION DRUG MONITORING PROGRAM REVIEWED*: Yes *COPY OF PRESCRIPTION DRUG MONITORING REPORT IN PATIENT [place]: No Home Medications: Home Meds Citalopram [Citalopram HBr] 20 mg PO DAILY 11/02/13 [History] Furosemide [Lasix] 20 mg PO DAILY 11/02/13 [History] Albuterol Sulfate [Ventolin Hfa] 1 puff INH ASDIRECTED PRN 05/21/16 [History] Cyanocobalamin/Folic AC/Vit B6 [Folbee] 1 tab PO DAILY 05/21/16 [History] Pramipexole [Mirapex] 0.5 mg PO TID 05/26/16 [History] Pantoprazole Sodium 40 mg PO DAILY 03/08/18 [History] Patient Handouts: Total Hip Replacement, [id number], Aspirin, ASA oral tablets, Total Hip Replacement, Care After, [id number] Referrals: Ingrid Alvarez PA [Physician Termite Exterminator Helper] - 03/08/18 1:20 pm - Discharge Summary/Plan Comment DC Time >30 min.: No - Patient Data Vitals - Most Recent: Last Vital Signs Temp 36.9 C 03/09/18 17:00 Pulse 71 03/09/18 17:00 Resp 20 03/09/18 17:00 BP 150/75 H 03/09/18 17:00 Pulse Ox 99 03/09/18 17:00 Weight - Most Recent: 91.626 kg I&O - Last 24 hours: Intake & Output 03/09/18 03/09/18 03/09/18 06:59 14:59 22:59 Intake Total 325 560 Output Total 800 Balance -475 560 Lab Results - Last 24 hrs: Laboratory Results - last 24 hr 03/09/18 Range/Units 05:20 Hgb 9.7 L (12.0-16.0) g/dL Hct 29.9 L (36.0-46.0) % Med Orders - Current: Current Medications Acetaminophen (Tylenol) 650 mg PO Q4H PRN PRN Reason: Pain Last Admin: 03/09/18 14:22 Dose: 650 mg Hydrocodone Bitart/Acetaminophen ([place] 325-5 Mg) 1 - 2 tab PO Q4H PRN PRN Reason: Pain Al Hydroxide/Mg Hydroxide (Mag-Al Plus) 30 ml PO Q4H PRN PRN Reason: indigestion Albuterol (Ventolin Hfa) 8 gm INH ASDIRECTED PRN PRN Reason: Shortness of Breath Aspirin (Aspirin) 325 mg PO BID [facility] Last Admin: 03/09/18 10:02 Dose: 325 mg Bisacodyl (Dulcolax) 10 mg RECTAL DAILY PRN PRN Reason: Constipation Celecoxib (Celebrex) 200 mg PO DAILY [facility] Last Admin: 03/09/18 10:02 Dose: 200 mg Citalopram Hydrobromide (Celexa) 20 mg PO DAILY [facility] Last Admin: 03/09/18 10:03 Dose: 20 mg Diphenhydramine HCl (Benadryl) 25 - 50 mg PO Q6H PRN PRN Reason: Itching Docusate Sodium (Colace) 100 mg PO BID [facility] Last Admin: 03/09/18 10:02 Dose: 100 mg Famotidine (Pepcid) 40 mg PO DAILY [facility] Last Admin: 03/09/18 10:02 Dose: 40 mg Furosemide (Lasix) 20 mg PO DAILY [facility] Last Admin: 03/09/18 10:02 Dose: 20 mg Hydromorphone HCl (Dilaudid) 0.5 - 1 mg IVPUSH Q3H PRN PRN Reason: Pain Ondansetron HCl (Zofran) 4 mg IV Q6HR PRN PRN Reason: NAUSEA/VOMITING Pantoprazole Sodium (Protonix) 40 mg PO DAILY [facility] Last Admin: 03/09/18 10:02 Dose: 40 mg Cyanocobalamin/Folic Ac/Vit B6 [Folbee] 1 Tab 1 each PO DAILY [facility] Last Admin: 03/09/18 11:12 Dose: Not Given Pramipexole Dihydrochloride (Mirapex) 0.5 mg PO TID [facility] Last Admin: 03/09/18 14:23 Dose: 0.5 mg Sodium Chloride (Saline Flush) 10 ml FLUSH ASDIRECTED PRN PRN Reason: Keep Vein Open Sodium Chloride (Saline Flush) 2.5 ml FLUSH ASDIRECTED PRN PRN Reason: Keep Vein Open Discontinued Medications Cefazolin Sodium (Ancef) Confirm Administered Dose 2 gm .ROUTE .STK-MED ONE Stop: 03/08/18 13:20 Fentanyl (Sublimaze) Confirm Administered Dose 100 mcg .ROUTE .STK-MED ONE Stop: 03/08/18 12:14 Glycopyrrolate (Robinul) Confirm Administered Dose 0.2 mg .ROUTE .STK-MED ONE Stop: 03/08/18 12:14 Clindamycin Phosphate 900 mg/ (Premix) 50 mls @ 100 mls/hr IV ONETIME [facility] Lactated Ringer's (Ringers, Lactated) 1,000 mls @ 125 mls/hr IV ASDIRECTED [facility] Last Infusion: 03/09/18 06:40 Dose: Infused Clindamycin Phosphate 900 mg/ (Premix) 50 mls @ 100 mls/hr IV ONETIME [facility] Last Admin: 03/09/18 07:05 Dose: 100 mls/hr Sodium Chloride (Normal Saline) Confirm Administered Dose 20 mls @ as directed .ROUTE .STK-MED ONE Stop: 03/08/18 13:20 Clindamycin Phosphate 900 mg/ (Premix) 50 mls @ 100 mls/hr IV Q8H [facility] Stop: 03/09/18 08:28 Last Admin: 03/09/18 07:09 Dose: 100 mls/hr Ketorolac Tromethamine (Toradol) 30 mg IVPUSH Q6H PRN PRN Reason: Pain Stop: 03/09/18 05:00 Lidocaine (Xylocaine-Mpf 2%) Confirm Administered Dose 5 ml .ROUTE .STK-MED ONE Stop: 03/08/18 12:14 Midazolam HCl (Versed 1 Mg/Ml) Confirm Administered Dose 2 mg .ROUTE .STK-MED ONE Stop: 03/08/18 12:14 Ondansetron HCl (Zofran) Confirm Administered Dose 4 mg .ROUTE .STK-MED ONE Stop: 03/08/18 12:14 Phenylephrine HCl (Phenylephrine In Ns 100 Mcg/Ml) Confirm Administered Dose 1 mg .ROUTE .STK-MED ONE Stop: 03/08/18 12:14 Promethazine HCl (Phenergan) Confirm Administered Dose 25 mg .ROUTE .STK-MED ONE Stop: 03/08/18 15:33 Last Admin: 03/08/18 16:08 Dose: 25 mg Propofol (Diprivan 20 Ml) Confirm Administered Dose 200 mg .ROUTE .STK-MED ONE Stop: 03/08/18 12:14 Tranexamic Acid (Cyklokapron) 2,000 mg IV ONETIME ONE Stop: 03/08/18 12:01 Last Admin: 03/08/18 19:32 Dose: Not Given Tranexamic Acid (Cyklokapron) Confirm Administered Dose 2,000 mg .ROUTE .STK- MED ONE Stop: 03/09/18 09:26
== END 2018-03-09 18:20 | disposition home or self-care (01) | DRG 301 ==
LOC: MW.MS 11:32
PROVIDERS: ADMIT Orthopaedic Surgery; ATTEND Orthopaedic Surgery
PROC: 0SRB0JZ Replacement of Left Hip Joint with Synthetic Substitute, Open Approach (ICD-10-PCS; principal; 2018-03-08)
DX: M16.12 Unilateral primary osteoarthritis, left hip (principal); I10 Essential (primary) hypertension; J45.909 Unspecified asthma, uncomplicated; K21.9 Gastro-esophageal reflux disease without esophagitis; M79.7 Fibromyalgia; F41.9 Anxiety disorder, unspecified; F32.9 Major depressive disorder, single episode, unspecified; R42 Dizziness and giddiness; R73.03 Prediabetes; Z88.5 Allergy status to narcotic agent; Z87.11 Personal history of peptic ulcer disease; Z87.442 Personal history of urinary calculi; Z88.8 Allergy status to other drugs, medicaments and biological substances; Z79.899 Other long term (current) drug therapy; Z87.891 Personal history of nicotine dependence
CPT/HCPCS: 36415; 76000; 76000-26; 85014; 85018; 97110-GP; 97116-GP; 97161-GP; A9270-GY; C1713; C1776; J0690; J2250; J2370; J2405; J2550; J2704; J3010; J3490; J7120

== ENCOUNTER 2019-03-15 10:58 | Emergency (ER) | payer BC, OTHER ==
[2019-03-15] MEDS ORDERED: Diphtheria,Pertussis(Acell),Tetanus Vaccine 0.5 ML Syringe IM ONE (11:00)
[2019-03-15] MEDS ORDERED: Bacitracin Oint 1 GM U/D Packet TOP ONE (11:00)
--- NOTE | 2019-03-15 11:12 | EDM.PDOC ---
ED HPI GENERAL MEDICAL PROBLEM - General Chief Complaint: Laceration Stated Complaint: GASH IN FINGER Time Seen by Provider: 03/15/19 10:59 Source of Information: Reports: Patient History Limitations: Reports: No Limitations - History of Present Illness INITIAL COMMENTS - FREE TEXT/NARRATIVE: HISTORY AND PHYSICAL: History of present illness: Patient is a 53-year-old female who presents to the emergency room today with complaints of a laceration to the palmar surface of the right fourth digit. She states she was moving a broken toilet bowl when the porcelain had slid and lacerated her finger. She denies any other extremity involvement. Does have to apply pressure for Patient denies any fever, chills, headache, change in vision , syncope or near syncope. Denies any chest pain, back pain, shortness of breath or cough. Denies any GI or symptoms. Patient has been eating and drinking appropriately. Review of systems: As per history of present illness and below otherwise all systems reviewed and negative. Past medical history: As per history of present illness and as reviewed below otherwise noncontributory. Surgical history: As per history of present illness and as reviewed below otherwise noncontributory. Social history: See social history for further information Family history: As per history of present illness and as reviewed below otherwise noncontributory. Physical exam: General: Well-developed and well-nourished 53-year-old female. Alert and oriented. Nontoxic appearing and in no acute distress. HEENT: Atraumatic, normocephalic, pupils equal and reactive bilaterally, negative for conjunctival pallor or scleral icterus, mucous membranes moist, trachea midline. No drooling or trismus noted. No meningeal signs. No hot potato voice noted. Lungs: Clear to auscultation, breath sounds equal bilaterally, chest nontender. Heart: S1S2, regular rate and rhythm without overt murmur Abdomen: Soft, nondistended, nontender. Skin: 2 cm laceration to the mid right fourth digit. Appears to have no tendon involvement. She does have a numbing sensation adjacent to the laceration. No distal finger numbness or tingling. Otherwise skin is intact, warm, dry. No lesions or rashes noted. Extremities: See skin for details, no tendon injury involved with the affected finger, moves all extremities per self without difficulty or deficits, negative for cords or calf pain. Neurovascular unremarkable. Neuro: Awake, alert, oriented. Cranial nerves II through XII unremarkable. Cerebellum unremarkable. Motor and sensory unremarkable throughout. Exam nonfocal. Notes: Chlorhexidine and wound wash were used to cleanse the area. One percent lidocaine was used to anesthetize the laceration site. Usual and customary procedures were followed for suture placement. 4-0 nylon, #6 interrupted sutures were placed. Bleeding has stopped. Bacitracin nonstick dressing was applied. Supportive care measures were reviewed and discussed. Voices understanding and is agreeable to plan of care. Denies any further questions or concerns at this time. Diagnostics: None Therapeutics: 1% lidocaine, wound care, bacitracin dressing,Tdap Prescription: None Impression: Laceration Plan: 1. Keep the area clean and dry. Continue to monitor for signs of infection. Sutures to be removed in 7-10 days. 2. Tylenol and/or ibuprofen as needed for pain management. 3. Follow-up with the hand surgeon as we discussed. Return to the ED as needed and as discussed. Definitive disposition and diagnosis as appropriate pending reevaluation and review of above. right middle finger Pain Score (Numeric/FACES): 7 - Related Data Allergies Allergy/AdvReac Type Severity Reaction Status Date / Time cefaclor [From Ceclor] Allergy Anaphylactic Verified 03/03/18 10:56 Shock milk Allergy Airway Verified 03/03/18 10:56 Tightness morphine Allergy Vomiting Verified 03/03/18 10:56 prednisone Allergy Hives Verified 03/03/18 10:56 sulfamethoxazole Allergy Anaphylactic Verified 03/15/19 11:11 [From Bactrim] Shock trimethoprim [From Bactrim] Allergy Anaphylactic Verified 03/15/19 11:11 Shock steroids Allergy Anaphylactic Uncoded 03/15/19 11:11 Shock Home Meds: Home Meds Citalopram [Citalopram HBr] 20 mg PO DAILY 11/02/13 [History] Furosemide [Lasix] 20 mg PO DAILY 11/02/13 [History] Albuterol Sulfate [Ventolin Hfa] 1 puff INH ASDIRECTED PRN 05/21/16 [History] Cyanocobalamin/Folic AC/Vit B6 [Folbee] 1 tab PO DAILY 05/21/16 [History] Pramipexole [Mirapex] 0.5 mg PO TID 05/26/16 [History] Pantoprazole Sodium 40 mg PO DAILY 03/08/18 [History] Past Medical History - Past Health History Medical/Surgical History: Denies Medical/Surgical History HEENT History: Reports: Other (See Below) Other HEENT History: wears glasses Cardiovascular History: Reports: Hypertension Other Cardiovascular History: hx hypertension before losing 100lb following bariatric surgery Respiratory History: Reports: Asthma, Other (See Below) Other Respiratory History: mild asthma Gastrointestinal History: Reports: GERD Genitourinary History: Reports: Renal Calculus [employer] History: Reports: Musculoskeletal History: Reports: Arthritis, Back Pain, Chronic, Fibromyalgia Psychiatric History: Reports: Anxiety, Depression Endocrine/Metabolic History: Reports: Obesity/BMI 30+ Hematologic History: Reports: Blood Transfusion(s) Other Hematologic History: states had transfusion following her tonsillectomy Dermatologic History: Reports: None - Infectious Disease History Infectious Disease History: Reports: Chicken Pox - Past Surgical History Head Surgeries/Procedures: Reports: None HEENT Surgical History: Reports: Tonsillectomy Cardiovascular Surgical History: Reports: None Respiratory Surgical History: Reports: None GI Surgical History: Reports: Bariatric Procedure, Guy Fundoplication Other GI Surgeries/Procedures: tummy tuck Female Surgical History: Reports: Breast Reduction, Section, Hysterectomy, Salpingo-Oophorectomy Endocrine Surgical History: Reports: None Musculoskeletal Surgical History: Reports: Arthroscopic Knee, Carpal Tunnel Other Musculoskeletal Surgeries/Procedures:: hand surgery x6 including bilat. CTR, tendon releases and bone graft to left thumb, right knee arthroscopy x2 Dermatological Surgical History: Reports: Plastic Surgical Reconstruction/Repair Social & Family History - Family History Family Medical History: Noncontributory - Caffeine Use Caffeine Use: Reports: None ED ROS GENERAL - Review of Systems Review Of Systems: ROS reveals no pertinent complaints other than HPI. ED EXAM, SKIN/RASH Exam: See Below (See dictation) ED SKIN PROCEDURES - Laceration/Wound Repair Right 4th digit Appearance: Subcutaneous, Linear Distal NVT: Neuro & Vascular Intact, No Tendon Injury Anesthetic Type: Local Local Anesthesia - Lidocaine (Xylocaine): 1% Plain Local Anesthetic Volume: 2cc Skin Prep: Chlorhexidine (Hibiciens), Saline, Sterile Drape Saline Irrigation (cc's): 50 Exploration/Debridement/Repair: Wound Explored, In a Bloodless Field, Explored to Base, No Foreign Material Found Closed with: Sutures Lac/Wound length In cm: 2 Suture Size: 4-0 # of Sutures: 6 Suture Type: Prolene, Silk, Interrupted, Simple Drain Placement: No Sterile Dressing Applied: Provider Tetanus Status Addressed: Yes Complications: No Course - Vital Signs Last Recorded V/S: Last Vital Signs Temp 95.8 F 03/15/19 11:07 Pulse 88 03/15/19 11:07 Resp 16 03/15/19 11:07 BP 149/85 H 03/15/19 11:07 Pulse Ox 98 03/15/19 11:07 - Orders/Labs/Meds Orders: Active Orders 24 hr Category Date Time Status Vaccines to be Administered [RC] PER UNIT ROUTINE Care 03/15/19 11:00 Active Meds: Medications Discontinued Medications Generic Name Dose Route Start Last Admin Trade Name Freq PRN Reason Stop Dose Admin Bacitracin 1 dose 03/15/19 11:00 03/15/19 11:16 Bacitracin Oint 1 Gm TOP 03/15/19 11:01 1 dose ONETIME ONE Administration Diphtheria/Tetanus/Acell Pertussis 0.5 ml 03/15/19 11:00 03/15/19 11:16 Adacel IM 03/15/19 11:01 0.5 ml .ONCE ONE Administration Lidocaine HCl 5 ml 03/15/19 11:00 03/15/19 11:16 Xylocaine-Mpf 1% INJECT 03/15/19 11:01 5 ml ONETIME ONE Administration Departure - Departure Time of Disposition: 11:23 Disposition: Home, Self-Care 01 Clinical Impression: Laceration - Discharge Information Instructions: Laceration Care, Adult, [id number] Referrals: PCP,None [Primary Care Provider] - Forms: ED Department Discharge Additional Instructions: The following information is given to patients seen in the emergency department who are being discharged to home. This information is to outline your options for follow-up care. We provide all patients seen in our emergency department with a follow-up referral. The need for follow-up, as well as the timing and circumstances, are variable depending upon the specifics of your emergency department visit. If you don't have a primary care physician on staff, we will provide you with a referral. We always advise you to contact your personal physician following an emergency department visit to inform them of the circumstance of the visit and for follow-up with them and/or the need for any referrals to a consulting specialist. The emergency department will also refer you to a specialist when appropriate. This referral assures that you have the opportunity for follow-up care with a specialist. All of these measure are taken in an effort to provide you with optimal care, which includes your follow-up. Under all circumstances we always encourage you to contact your private physician who remains a resource for coordinating your care. When calling for follow-up care, please make the office aware that this follow-up is from your recent emergency room visit. If for any reason you are refused follow-up, please contact the [facility] Emergency Department at and asked to speak to the emergency department charge nurse. [facility] [address] [place], [place] [id number] [place] [address] 1. Keep the area clean and dry. Continue to monitor for signs of infection. Sutures to be removed in 7-10 days. 2. Tylenol and/or ibuprofen as needed for pain management. 3. Follow-up with the hand surgeon as we discussed. Return to the ED as needed and as discussed. - My Orders Last 24 Hours: My Active Orders 03/15/19 11:00 Vaccines to be Administered [RC] PER UNIT ROUTINE - Assessment/Plan Last 24 Hours: My Active Orders 03/15/19 11:00 Vaccines to be Administered [RC] PER UNIT ROUTINE
[2019-03-15 11:52] VITALS: BP 137/77; PULSE 80
== END 2019-03-15 11:48 | disposition home or self-care (01) ==
LOC: MW.ED 10:58
DX: S61.214A Laceration without foreign body of right ring finger without damage to nail, initial encounter (principal); K21.9 Gastro-esophageal reflux disease without esophagitis; I10 Essential (primary) hypertension; F41.9 Anxiety disorder, unspecified; F32.9 Major depressive disorder, single episode, unspecified; Z23 Encounter for immunization; E66.9 Obesity, unspecified; Z68.32 Body mass index [BMI] 32.0-32.9, adult; Z88.1 Allergy status to other antibiotic agents; Z91.011 Allergy to milk products; Z88.5 Allergy status to narcotic agent; Z88.8 Allergy status to other drugs, medicaments and biological substances; Z88.2 Allergy status to sulfonamides; Z79.899 Other long term (current) drug therapy; W26.8XXA Contact with other sharp object(s), not elsewhere classified, initial encounter
CPT/HCPCS: 12001; 90471; 90715; 99282; J2001

== ENCOUNTER 2019-05-16 13:53 | Observation (INO) | payer BC ==
[2019-05-16] MEDS ORDERED: Aspirin 81 MG Tab.Chew PO ONE (14:02)
[2019-05-16] MEDS ORDERED: Sodium Chloride 0.9% 10 ML Syringe FLUSH PRN (14:02)
[2019-05-16] MEDS ORDERED: Sodium Chloride 0.9% 2.5 ML Syringe FLUSH PRN (14:02)
--- NOTE | 2019-05-16 14:07 | EDM.PDOC ---
ED HPI GENERAL MEDICAL PROBLEM - General Chief Complaint: Chest Pain Stated Complaint: CHEST PAIN Time Seen by Provider: 05/16/19 14:05 Source of Information: Reports: Patient History Limitations: Reports: No Limitations - History of Present Illness INITIAL COMMENTS - FREE TEXT/NARRATIVE: HISTORY AND PHYSICAL: History of present illness: Patient is a 53-year-old female who presents to the emergency room today with complaints of chest pain that started approximately 10 minutes prior to arrival. She describes the pain as a sharp pressure across her midsternum and radiates into bilateral sides of her neck and down her left arm. She initially thought this was her GERD, but became concerned when involved her arm. She does have associated nausea. Chest tenderness with palpation, pain is reproducible with palpation. Patient denies any fever, chills, headache, change in vision, syncope or near syncope. Denies any back pain, shortness of breath or cough. Denies any abdominal pain, nausea, vomiting, diarrhea, constipation or dysuria. Has not noted any blood in urine or stool. Patient has been eating and drinking appropriately. Past medical history of hypertension, asthma, GERD, fibromyalgia, anxiety/ depression, and bariatric surgery. Review of systems: As per history of present illness and below otherwise all systems reviewed and negative. Past medical history: As per history of present illness and as reviewed below otherwise noncontributory. Surgical history: As per history of present illness and as reviewed below otherwise noncontributory. Social history: See social history for further information Family history: As per history of present illness and as reviewed below otherwise noncontributory. Physical exam: General: Well-developed and well-nourished 53-year-old female. Alert and oriented. Nontoxic appearing and in no acute distress. HEENT: Atraumatic, normocephalic, pupils equal and reactive bilaterally, negative for conjunctival pallor or scleral icterus, mucous membranes moist, TMs normal bilaterally, throat clear, neck supple, nontender, trachea midline. No drooling or trismus noted. No meningeal signs. No hot potato voice noted. Lungs: Clear to auscultation, breath sounds equal bilaterally, chest nontender. Heart: S1S2, regular rate and rhythm without overt murmur Abdomen: Soft, nondistended, nontender. Negative for masses or hepatosplenomegaly. Negative for costovertebral tenderness. Pelvis: Stable nontender. Skin: Intact, warm, dry. No lesions or rashes noted. Extremities: Atraumatic, moves all extremities per self without difficulty or deficits, negative for cords or calf pain. Neurovascular unremarkable. Neuro: Awake, alert, oriented. Cranial nerves II through XII unremarkable. Cerebellum unremarkable. Motor and sensory unremarkable throughout. Exam nonfocal. Notes: Patient states her chest pain is better but she now has this burning sensation in her epigastrium. Lab work is unremarkable. Chest x-ray shows no acute findings. EKG shows no acute findings. We discussed admission, which she is agreeable to. Dr. Almodovar was consulted and agreeable to further caring for this patient. Diagnostics: CBC, CMP, Troponin, EKG, CXR Therapeutics: SL, Aspirin, Protonix, GI cocktail, nitroglycerin Impression: Chest pain r/o HI Epigastric pain Plan: Observation admission with telemetry Definitive disposition and diagnosis as appropriate pending reevaluation and review of above. chest Pain Score (Numeric/FACES): 8 - Related Data Allergies Allergy/AdvReac Type Severity Reaction Status Date / Time cefaclor [From Ceclor] Allergy Anaphylactic Verified 03/03/18 10:56 Shock milk Allergy Airway Verified 03/03/18 10:56 Tightness morphine Allergy Vomiting Verified 03/03/18 10:56 prednisone Allergy Hives Verified 03/03/18 10:56 sulfamethoxazole Allergy Anaphylactic Verified 03/15/19 11:11 [From Bactrim] Shock trimethoprim [From Bactrim] Allergy Anaphylactic Verified 03/15/19 11:11 Shock steroids Allergy Anaphylactic Uncoded 03/15/19 11:11 Shock Home Meds: Home Meds Citalopram [Citalopram HBr] 20 mg PO DAILY 11/02/13 [History] Furosemide [Lasix] 20 mg PO DAILY 11/02/13 [History] Albuterol Sulfate [Ventolin Hfa] 1 puff INH ASDIRECTED PRN 05/21/16 [History] Cyanocobalamin/Folic AC/Vit B6 [Folbee] 1 tab PO DAILY 05/21/16 [History] Pramipexole [Mirapex] 0.5 mg PO TID 05/26/16 [History] Pantoprazole Sodium 40 mg PO DAILY 03/08/18 [History] Past Medical History - Past Health History Medical/Surgical History: Denies Medical/Surgical History HEENT History: Reports: Other (See Below) Other HEENT History: wears glasses Cardiovascular History: Reports: Hypertension Other Cardiovascular History: hx hypertension before losing 100lb following bariatric surgery Respiratory History: Reports: Asthma, Other (See Below) Other Respiratory History: mild asthma Gastrointestinal History: Reports: GERD Genitourinary History: Reports: Renal Calculus [employer] History: Reports: Musculoskeletal History: Reports: Arthritis, Back Pain, Chronic, Fibromyalgia Psychiatric History: Reports: Anxiety, Depression Endocrine/Metabolic History: Reports: Obesity/BMI 30+ Hematologic History: Reports: Blood Transfusion(s) Other Hematologic History: states had transfusion following her tonsillectomy Dermatologic History: Reports: None - Infectious Disease History Infectious Disease History: Reports: Chicken Pox - Past Surgical History Head Surgeries/Procedures: Reports: None HEENT Surgical History: Reports: Tonsillectomy Cardiovascular Surgical History: Reports: None Respiratory Surgical History: Reports: None GI Surgical History: Reports: Bariatric Procedure, Guy Fundoplication Other GI Surgeries/Procedures: tummy tuck Female Surgical History: Reports: Breast Reduction, Section, Hysterectomy, Salpingo-Oophorectomy Endocrine Surgical History: Reports: None Musculoskeletal Surgical History: Reports: Arthroscopic Knee, Carpal Tunnel Other Musculoskeletal Surgeries/Procedures:: hand surgery x6 including bilat. CTR, tendon releases and bone graft to left thumb, right knee arthroscopy x2 Dermatological Surgical History: Reports: Plastic Surgical Reconstruction/Repair Social & Family History - Family History Family Medical History: Noncontributory - Caffeine Use Caffeine Use: Reports: None ED ROS GENERAL - Review of Systems Review Of Systems: Comprehensive ROS is negative, except as noted in HPI. ED EXAM, GENERAL - Physical Exam Exam: See Below (See dictation) Course - Vital Signs Last Recorded V/S: Last Vital Signs Temp Pulse 85 05/16/19 14:01 Resp 15 05/16/19 14:01 BP 124/78 05/16/19 14:36 Pulse Ox 99 05/16/19 14:01 - Orders/Labs/Meds Orders: Active Orders 24 hr Category Date Time Status EKG Documentation Completion [RC] STAT Care 05/16/19 14:02 Active Sodium Chloride 0.9% [Saline Flush] Med 05/16/19 14:02 Active 10 ml FLUSH ASDIRECTED PRN Sodium Chloride 0.9% [Saline Flush] Med 05/16/19 14:02 Active 2.5 ml FLUSH ASDIRECTED PRN Saline Lock Insert [OM.PC] Stat Oth 05/16/19 14:02 Ordered Medication Orders Sodium Chloride (Saline Flush) 10 ml FLUSH ASDIRECTED PRN PRN Reason: Keep Vein Open Last Admin: 05/16/19 14:27 Dose: 10 ml Sodium Chloride (Saline Flush) 2.5 ml FLUSH ASDIRECTED PRN PRN Reason: Keep Vein Open Last Admin: 05/16/19 14:27 Dose: 2.5 ml Labs: Laboratory Tests 05/16/19 05/16/19 Range/Units 14:05 14:05 WBC 6.60 (4.0-11.0) K/uL RBC 5.07 (4.30-5.90) M/uL Hgb 14.9 (12.0-16.0) g/dL Hct 44.2 (36.0-46.0) % MCV 87.2 (80.0-98.0) fL MCH 29.4 (27.0-32.0) pg MCHC 33.7 (31.0-37.0) g/dL RDW Std Deviation 56.5 (28.0-62.0) fl RDW Coeff of Smita 18 H (11.0-15.0) % Plt Count 248 (150-400) K/uL MPV 9.30 (7.40-12.00) fL Neut % (Auto) 66.3 (48.0-80.0) % Lymph % (Auto) 24.4 (16.0-40.0) % [place] % (Auto) 8.0 (0.0-15.0) % Eos % (Auto) 1.1 (0.0-7.0) % Baso % (Auto) 0.2 (0.0-1.5) % Neut # (Auto) 4.4 (1.4-5.7) K/uL Lymph # (Auto) 1.6 (0.6-2.4) K/uL [place] # (Auto) 0.5 (0.0-0.8) K/uL Eos # (Auto) 0.1 (0.0-0.7) K/uL Baso # (Auto) 0.0 (0.0-0.1) K/uL Nucleated RBC % 0.0 /100WBC Nucleated RBCs # 0 K/uL Sodium 140 (136-145) mmol/L Potassium 4.0 (3.5-5.1) mmol/L Chloride 105 (98-107) mmol/L Carbon Dioxide 25.1 (21.0-32.0) mmol/L BUN 18 (7.0-18.0) mg/dL Creatinine 0.9 (0.6-1.0) mg/dL Est Cr Clr Drug Dosing TNP Estimated GFR (MDRD) > 60.0 ml/min Glucose 89 (74-106) mg/dL Calcium 8.9 (8.5-10.1) mg/dL Total Bilirubin 0.2 (0.2-1.0) mg/dL AST 27 (15-37) IU/L ALT 31 (14-63) IU/L Alkaline Phosphatase 128 H (46-116) U/L Troponin I < 0.050 (0.000-0.056) ng/mL Total Protein 7.9 (6.4-8.2) g/dL Albumin 4.2 (3.4-5.0) g/dL Globulin 3.7 (2.6-4.0) g/dL Albumin/Globulin Ratio 1.1 (0.9-1.6) Meds: Medications Generic Name Dose Route Start Last Admin Trade Name Silas PRN Reason Stop Dose Admin Sodium Chloride 10 ml 05/16/19 14:02 05/16/19 14:27 Saline Flush FLUSH 10 ml ASDIRECTED PRN Administration Keep Vein Open Sodium Chloride 2.5 ml 05/16/19 14:02 05/16/19 14:27 Saline Flush FLUSH 2.5 ml ASDIRECTED PRN Administration Keep Vein Open Discontinued Medications Generic Name Dose Route Start Last Admin Trade Name Freq PRN Reason Stop Dose Admin Aspirin 324 mg 05/16/19 14:02 05/16/19 14:24 Aspirin PO 05/16/19 14:03 324 mg ONETIME ONE Administration Al Hydroxide/Mg Hydroxide 15 0 ml 05/16/19 14:12 05/16/19 14:48 ml/ Metoclopramide HCl 5 mg/ PO 05/16/19 14:13 5 each Lidocaine HCl 5 ml ONETIME ONE Administration Ketorolac Tromethamine 30 mg 05/16/19 15:19 Toradol IVPUSH 05/16/19 15:20 ONETIME ONE Nitroglycerin 0.4 mg 05/16/19 14:11 05/16/19 14:36 Nitrostat SL 0.4 mg Q5M PRN Administration Chest Pain Pantoprazole Sodium 80 mg 05/16/19 14:11 05/16/19 14:25 Protonix Iv IVPUSH 05/16/19 14:12 80 mg .BOLUS ONE Administration Departure - Departure Time of Disposition: 15:28 Disposition: Refer to Observation Clinical Impression: Chest pain, rule out acute myocardial infarction, Epigastric pain Forms: ED Department Discharge - My Orders Last 24 Hours: My Active Orders 05/16/19 14:02 EKG Documentation Completion [RC] STAT Sodium Chloride 0.9% [Saline Flush] 10 ml FLUSH ASDIRECTED PRN Sodium Chloride 0.9% [Saline Flush] 2.5 ml FLUSH ASDIRECTED PRN Saline Lock Insert [OM.PC] Stat - Assessment/Plan Last 24 Hours: My Active Orders 05/16/19 14:02 EKG Documentation Completion [RC] STAT Sodium Chloride 0.9% [Saline Flush] 10 ml FLUSH ASDIRECTED PRN Sodium Chloride 0.9% [Saline Flush] 2.5 ml FLUSH ASDIRECTED PRN Saline Lock Insert [OM.PC] Stat
[2019-05-16] MEDS ORDERED: Pantoprazole 40 MG Vial IVPUSH ONE (14:11)
[2019-05-16] MEDS ORDERED: Alum Hydrox/Mag Hydrox/Simeth 15 ML, Metoclopramide 5 MG, Lidocaine 2% 5 ML PO ONE ×3 (14:12)
[2019-05-16] MEDS: Nitroglycerin 0.4 MG Tab.SL SL PRN ×3 (14:25→14:36)
--- NOTE | 2019-05-16 14:45 | CR ---
EXAM DATE: 05/16/19 PATIENT'S AGE: 53 Chest: Frontal view of the chest was obtained. Comparison: Prior chest x-ray of 01/05/17. Heart size and mediastinum are normal. Lungs are clear. Bony structures are grossly intact. Impression: 1. Nothing acute is seen on frontal chest x-ray. Diagnostic code #1 Report Signed by Proxy. AMILCAR
[2019-05-16 15:16] LABS: BLOOD UREA NITROGEN,BUN 18 mg/dL (7.0-18.0); CARBON DIOXIDE,CO2 25.1 mmol/L (21.0-32.0); CHLORIDE,CL 105 mmol/L (98-107); GLUCOSE RANDOM 89 mg/dL (74-106); SODIUM,NA 140 mmol/L (136-145)
[2019-05-16] MEDS ORDERED: Ketorolac 30 MG/ML SDV IVPUSH ONE (15:19)
[2019-05-16] MEDS ORDERED: Albuterol 8 GM Inhaler INH PRN (17:07)
--- NOTE | 2019-05-16 17:24 | PCM.HP.2 ---
H&P History of Present Illness - General Date of Service: 05/16/19 Admit Problem/Dx: Admission Diagnosis/Problem Admission Diagnosis/Problem Chest pain, rule out acute myocardial infarction - History of Present Illness Initial Comments - Free Text/Narative: 53 yo female with pmh of GERD, anxiety,and depression who presents with a week long history of heart burn. Patient states she has to watch what she eats or it will make the pain worse. She describes the pain as apigastric that radiates up to her neck. Today was the most severe it has been. She takes pantoprazole. She has a history of bariatric surgery. chest Pain Score (Numeric/FACES): 5 - Related Data Allergies/Adverse Reactions: Allergies Allergy/AdvReac Type Severity Reaction Status Date / Time cefaclor [From Ceclor] Allergy Anaphylactic Verified 05/16/19 16:48 Shock milk Allergy Drowsiness Verified 05/16/19 16:48 morphine Allergy Vomiting Verified 05/16/19 16:48 prednisone Allergy Hives Verified 05/16/19 16:48 sulfamethoxazole Allergy Anaphylactic Verified 05/16/19 16:48 [From Bactrim] Shock trimethoprim [From Bactrim] Allergy Anaphylactic Verified 05/16/19 16:48 Shock steroids Allergy Anaphylactic Uncoded 05/16/19 16:48 Shock Home Medications: Home Meds Citalopram [Citalopram HBr] 40 mg PO DAILY 11/02/13 [History] Furosemide [Lasix] 20 mg PO DAILY PRN 11/02/13 [History] Albuterol Sulfate [Ventolin Hfa] 1 puff INH ASDIRECTED PRN 05/21/16 [History] Cyanocobalamin/Folic AC/Vit B6 [Folbee] 1 tab PO DAILY 05/21/16 [History] Pramipexole [Mirapex] 0.5 mg PO TID 05/26/16 [History] Pantoprazole Sodium 40 mg PO DAILY 03/08/18 [History] Cyclobenzaprine HCl 10 mg PO TID PRN 05/16/19 [History] Past Medical History - Past Health History Medical/Surgical History: Denies Medical/Surgical History HEENT History: Reports: Other (See Below) Other HEENT History: wears glasses Cardiovascular History: Reports: Hypertension Other Cardiovascular History: hx hypertension before losing 100lb following bariatric surgery Respiratory History: Reports: Asthma, Other (See Below) Other Respiratory History: mild asthma Gastrointestinal History: Reports: GERD Genitourinary History: Reports: Renal Calculus [employer] History: Reports: Musculoskeletal History: Reports: Arthritis, Back Pain, Chronic, Fibromyalgia Neurological History: Reports: Concussion, Seizure, Vertigo Psychiatric History: Reports: Anxiety, Depression Endocrine/Metabolic History: Reports: Obesity/BMI 30+ Hematologic History: Reports: Blood Transfusion(s) Other Hematologic History: states had transfusion following her tonsillectomy Dermatologic History: Reports: None - Infectious Disease History Infectious Disease History: Reports: Chicken Pox - Past Surgical History Head Surgeries/Procedures: Reports: None HEENT Surgical History: Reports: Tonsillectomy Cardiovascular Surgical History: Reports: None Respiratory Surgical History: Reports: None GI Surgical History: Reports: Bariatric Procedure, Guy Fundoplication Other GI Surgeries/Procedures: tummy tuck Female Surgical History: Reports: Breast Reduction, Section, Hysterectomy, Salpingo-Oophorectomy Endocrine Surgical History: Reports: None Musculoskeletal Surgical History: Reports: Arthroscopic Knee, Carpal Tunnel Other Musculoskeletal Surgeries/Procedures:: hand surgery x6 including bilat. CTR, tendon releases and bone graft to left thumb, right knee arthroscopy x2 Dermatological Surgical History: Reports: Plastic Surgical Reconstruction/Repair Social & Family History - Family History Family Medical History: Noncontributory - Tobacco Use Smoking Status *Q: Former Smoker Used Tobacco, but Quit: Yes Month/Year Tobacco Last Used: 1998 Second Hand Smoke Exposure: Yes - Caffeine Use Caffeine Use: Reports: Coffee, Soda, Tea - Recreational Drug Use Recreational Drug Use: No H&P Review of Systems - Review of Systems: Review Of Systems: Comprehensive ROS is negative, except as noted in HPI. Exam - Exam Exam: See Below - Vital Signs Vital Signs: Last Vital Signs Temp 37.1 C 05/16/19 17:14 Pulse 74 05/16/19 17:14 Resp 18 05/16/19 17:14 BP 142/86 H 05/16/19 17:14 Pulse Ox 99 05/16/19 17:14 Weight: 94 kg - Exam General: Alert, Oriented HEENT: Mucosa Moist & [place]ck: Supple Lungs: Clear to Auscultation, Normal Respiratory Effort Cardiovascular: Regular Rate, Regular Rhythm GI/Abdominal Exam: Soft, Non-Tender Extremities: Non-Tender, No Pedal Edema Skin: Warm, Dry, Intact - Patient Data Lab Results Last 24 hrs: Laboratory Results - last 24 hr 05/16/19 05/16/19 Range/Units 14:05 14:05 WBC 6.60 (4.0-11.0) K/uL RBC 5.07 (4.30-5.90) M/uL Hgb 14.9 (12.0-16.0) g/dL Hct 44.2 (36.0-46.0) % MCV 87.2 (80.0-98.0) fL MCH 29.4 (27.0-32.0) pg MCHC 33.7 (31.0-37.0) g/dL RDW Std Deviation 56.5 (28.0-62.0) fl RDW Coeff of Smita 18 H (11.0-15.0) % Plt Count 248 (150-400) K/uL MPV 9.30 (7.40-12.00) fL Neut % (Auto) 66.3 (48.0-80.0) % Lymph % (Auto) 24.4 (16.0-40.0) % [place] % (Auto) 8.0 (0.0-15.0) % Eos % (Auto) 1.1 (0.0-7.0) % Baso % (Auto) 0.2 (0.0-1.5) % Neut # (Auto) 4.4 (1.4-5.7) K/uL Lymph # (Auto) 1.6 (0.6-2.4) K/uL [place] # (Auto) 0.5 (0.0-0.8) K/uL Eos # (Auto) 0.1 (0.0-0.7) K/uL Baso # (Auto) 0.0 (0.0-0.1) K/uL Nucleated RBC % 0.0 /100WBC Nucleated RBCs # 0 K/uL Sodium 140 (136-145) mmol/L Potassium 4.0 (3.5-5.1) mmol/L Chloride 105 (98-107) mmol/L Carbon Dioxide 25.1 (21.0-32.0) mmol/L BUN 18 (7.0-18.0) mg/dL Creatinine 0.9 (0.6-1.0) mg/dL Est Cr Clr Drug Dosing TNP Estimated GFR (MDRD) > 60.0 ml/min Glucose 89 (74-106) mg/dL Calcium 8.9 (8.5-10.1) mg/dL Total Bilirubin 0.2 (0.2-1.0) mg/dL AST 27 (15-37) IU/L ALT 31 (14-63) IU/L Alkaline Phosphatase 128 H (46-116) U/L Troponin I < 0.050 (0.000-0.056) ng/mL Total Protein 7.9 (6.4-8.2) g/dL Albumin 4.2 (3.4-5.0) g/dL Globulin 3.7 (2.6-4.0) g/dL Albumin/Globulin Ratio 1.1 (0.9-1.6) Result Diagrams: 05/17/19 05:43 05/17/19 05:43 Problem List Initiated/Reviewed/Updated: Yes Orders Last 24hrs: Active Orders 24 hr Category Date Time Status Admission Status [Patient Status] [ADT] Stat ADT 05/16/19 15:29 Active Cardiac Monitoring [RC] . DIRECTED Care 05/16/19 15:29 Active TROPONIN I [CHEM] Q6H Lab 05/16/19 20:00 Ordered Albuterol [Ventolin HFA] Med 05/16/19 17:07 Active 0 gm INH ASDIRECTED PRN Citalopram [Celexa] Med 05/17/19 09:00 Active 20 mg PO DAILY Pantoprazole [ProTONIX] Med 05/17/19 07:30 Active 40 mg PO ACBREAKFAST Pramipexole [Mirapex] Med 05/16/19 22:00 Active 0.5 mg PO TID Sodium Chloride 0.9% [Saline Flush] Med 05/16/19 14:02 Active 10 ml FLUSH ASDIRECTED PRN Sodium Chloride 0.9% [Saline Flush] Med 05/16/19 14:02 Active 2.5 ml FLUSH ASDIRECTED PRN Saline Lock Insert [OM.PC] Stat Oth 05/16/19 14:02 Ordered Medication Orders Albuterol (Ventolin Hfa) 0 gm INH ASDIRECTED PRN PRN Reason: Shortness of Breath Citalopram Hydrobromide (Celexa) 20 mg PO DAILY JOELLE Pantoprazole Sodium (Protonix) 40 mg PO ACBREAKFAST JOELLE Pramipexole Dihydrochloride (Mirapex) 0.5 mg PO TID JOELLE Sodium Chloride (Saline Flush) 10 ml FLUSH ASDIRECTED PRN PRN Reason: Keep Vein Open Last Admin: 05/16/19 14:27 Dose: 10 ml Sodium Chloride (Saline Flush) 2.5 ml FLUSH ASDIRECTED PRN PRN Reason: Keep Vein Open Last Admin: 05/16/19 14:27 Dose: 2.5 ml Assessment/Plan Comment:: 53 yo female who presented with chest pain. We will trend cardiac enzymes and monitor on telemetry.
[2019-05-16] MEDS ORDERED: Acetaminophen 325 MG Tab PO PRN (17:33)
[2019-05-16] MEDS ORDERED: Cyclobenzaprine 10 MG Tab PO SCH (21:00)
[2019-05-16] MEDS ORDERED: Pramipexole 0.25 MG Tab PO SCH ×2 (21:30→22:00)
[2019-05-17 06:22] LABS: BLOOD UREA NITROGEN,BUN 20 mg/dL (7.0-18.0); CARBON DIOXIDE,CO2 25.8 mmol/L (21.0-32.0); CHLORIDE,CL 106 mmol/L (98-107); GLUCOSE RANDOM 91 mg/dL (74-106); SODIUM,NA 140 mmol/L (136-145)
--- NOTE | 2019-05-17 07:14 | PCM.PN ---
- General Info Date of Service: 05/17/19 - Review of Systems Systems Review Comment:: reports pain is cycling up again this morning - Patient Data Vitals - Most Recent: Last Vital Signs Temp 36.8 C 05/17/19 04:00 Pulse 57 L 05/17/19 04:00 Resp 16 05/17/19 04:00 BP 124/74 05/17/19 04:00 Pulse Ox 95 05/17/19 04:00 Weight - Most Recent: 94 kg Lab Results Last 24 Hours: Laboratory Results - last 24 hr 05/16/19 05/16/19 05/16/19 Range/Units 14:05 14:05 14:05 WBC 6.60 (4.0-11.0) K/uL RBC 5.07 (4.30-5.90) M/uL Hgb 14.9 (12.0-16.0) g/dL Hct 44.2 (36.0-46.0) % MCV 87.2 (80.0-98.0) fL MCH 29.4 (27.0-32.0) pg MCHC 33.7 (31.0-37.0) g/dL RDW Std Deviation 56.5 (28.0-62.0) fl RDW Coeff of Smita 18 H (11.0-15.0) % Plt Count 248 (150-400) K/uL MPV 9.30 (7.40-12.00) fL Neut % (Auto) 66.3 (48.0-80.0) % Lymph % (Auto) 24.4 (16.0-40.0) % [place] % (Auto) 8.0 (0.0-15.0) % Eos % (Auto) 1.1 (0.0-7.0) % Baso % (Auto) 0.2 (0.0-1.5) % Neut # (Auto) 4.4 (1.4-5.7) K/uL Lymph # (Auto) 1.6 (0.6-2.4) K/uL [place] # (Auto) 0.5 (0.0-0.8) K/uL Eos # (Auto) 0.1 (0.0-0.7) K/uL Baso # (Auto) 0.0 (0.0-0.1) K/uL Nucleated RBC % 0.0 /100WBC Nucleated RBCs # 0 K/uL Sodium 140 (136-145) mmol/L Potassium 4.0 (3.5-5.1) mmol/L Chloride 105 (98-107) mmol/L Carbon Dioxide 25.1 (21.0-32.0) mmol/L BUN 18 (7.0-18.0) mg/dL Creatinine 0.9 (0.6-1.0) mg/dL Est Cr Clr Drug Dosing TNP Estimated GFR (MDRD) > 60.0 ml/min Glucose 89 (74-106) mg/dL Calcium 8.9 (8.5-10.1) mg/dL Total Bilirubin 0.2 (0.2-1.0) mg/dL AST 27 (15-37) IU/L ALT 31 (14-63) IU/L Alkaline Phosphatase 128 H (46-116) U/L Troponin I < 0.050 (0.000-0.056) ng/mL Total Protein 7.9 (6.4-8.2) g/dL Albumin 4.2 (3.4-5.0) g/dL Globulin 3.7 (2.6-4.0) g/dL Albumin/Globulin Ratio 1.1 (0.9-1.6) Lipase 169 (73-393) U/L 05/16/19 05/17/19 05/17/19 Range/Units 20:00 02:08 05:43 WBC 6.09 (4.0-11.0) K/uL RBC 4.66 (4.30-5.90) M/uL Hgb 13.7 (12.0-16.0) g/dL Hct 41.0 (36.0-46.0) % MCV 88.0 (80.0-98.0) fL MCH 29.4 (27.0-32.0) pg MCHC 33.4 (31.0-37.0) g/dL RDW Std Deviation 57.0 (28.0-62.0) fl RDW Coeff of Smita 18 H (11.0-15.0) % Plt Count 203 (150-400) K/uL MPV 9.10 (7.40-12.00) fL Neut % (Auto) 52.1 (48.0-80.0) % Lymph % (Auto) 35.5 (16.0-40.0) % [place] % (Auto) 9.7 (0.0-15.0) % Eos % (Auto) 2.5 (0.0-7.0) % Baso % (Auto) 0.2 (0.0-1.5) % Neut # (Auto) 3.2 (1.4-5.7) K/uL Lymph # (Auto) 2.2 (0.6-2.4) K/uL [place] # (Auto) 0.6 (0.0-0.8) K/uL Eos # (Auto) 0.2 (0.0-0.7) K/uL Baso # (Auto) 0.0 (0.0-0.1) K/uL Nucleated RBC % 0.0 /100WBC Nucleated RBCs # 0 K/uL Sodium (136-145) mmol/L Potassium (3.5-5.1) mmol/L Chloride (98-107) mmol/L Carbon Dioxide (21.0-32.0) mmol/L BUN (7.0-18.0) mg/dL Creatinine (0.6-1.0) mg/dL Est Cr Clr Drug Dosing Estimated GFR (MDRD) ml/min Glucose (74-106) mg/dL Calcium (8.5-10.1) mg/dL Total Bilirubin (0.2-1.0) mg/dL AST (15-37) IU/L ALT (14-63) IU/L Alkaline Phosphatase (46-116) U/L Troponin I < 0.050 < 0.050 (0.000-0.056) ng/mL Total Protein (6.4-8.2) g/dL Albumin (3.4-5.0) g/dL Globulin (2.6-4.0) g/dL Albumin/Globulin Ratio (0.9-1.6) Lipase (73-393) U/L 05/17/19 Range/Units 05:43 WBC (4.0-11.0) K/uL RBC (4.30-5.90) M/uL Hgb (12.0-16.0) g/dL Hct (36.0-46.0) % MCV (80.0-98.0) fL MCH (27.0-32.0) pg MCHC (31.0-37.0) g/dL RDW Std Deviation (28.0-62.0) fl RDW Coeff of Smita (11.0-15.0) % Plt Count (150-400) K/uL MPV (7.40-12.00) fL Neut % (Auto) (48.0-80.0) % Lymph % (Auto) (16.0-40.0) % [place] % (Auto) (0.0-15.0) % Eos % (Auto) (0.0-7.0) % Baso % (Auto) (0.0-1.5) % Neut # (Auto) (1.4-5.7) K/uL Lymph # (Auto) (0.6-2.4) K/uL [place] # (Auto) (0.0-0.8) K/uL Eos # (Auto) (0.0-0.7) K/uL Baso # (Auto) (0.0-0.1) K/uL Nucleated RBC % /100WBC Nucleated RBCs # K/uL Sodium 140 (136-145) mmol/L Potassium 4.0 (3.5-5.1) mmol/L Chloride 106 (98-107) mmol/L Carbon Dioxide 25.8 (21.0-32.0) mmol/L BUN 20 H (7.0-18.0) mg/dL Creatinine 0.8 (0.6-1.0) mg/dL Est Cr Clr Drug Dosing 70.23 Estimated GFR (MDRD) > 60.0 ml/min Glucose 91 (74-106) mg/dL Calcium 8.6 (8.5-10.1) mg/dL Total Bilirubin 0.3 (0.2-1.0) mg/dL AST 17 (15-37) IU/L ALT 30 (14-63) IU/L Alkaline Phosphatase 101 (46-116) U/L Troponin I (0.000-0.056) ng/mL Total Protein 6.7 (6.4-8.2) g/dL Albumin 3.5 (3.4-5.0) g/dL Globulin 3.2 (2.6-4.0) g/dL Albumin/Globulin Ratio 1.1 (0.9-1.6) Lipase (73-393) U/L Med Orders - Current: Current Medications Acetaminophen (Tylenol) 650 mg PO Q6H PRN PRN Reason: Pain Last Admin: 05/17/19 07:02 Dose: 650 mg Albuterol (Ventolin Hfa) 0 gm INH ASDIRECTED PRN PRN Reason: Shortness of Breath Citalopram Hydrobromide (Celexa) 40 mg PO DAILY [facility] Cyclobenzaprine HCl (Flexeril) 10 mg PO BEDTIME [facility] Last Admin: 05/16/19 22:06 Dose: 10 mg Pantoprazole Sodium 40 mg/ (Sodium Chloride) 10 mls @ 300 mls/hr IV Q12H [facility] Pramipexole Dihydrochloride (Mirapex) 1 mg PO BEDTIME [facility] Last Admin: 05/16/19 22:07 Dose: 1 mg Sodium Chloride (Saline Flush) 10 ml FLUSH ASDIRECTED PRN PRN Reason: Keep Vein Open Last Admin: 05/16/19 14:27 Dose: 10 ml Sodium Chloride (Saline Flush) 2.5 ml FLUSH ASDIRECTED PRN PRN Reason: Keep Vein Open Last Admin: 05/16/19 14:27 Dose: 2.5 ml Discontinued Medications Aspirin (Aspirin) 324 mg PO ONETIME ONE Stop: 05/16/19 14:03 Last Admin: 05/16/19 14:24 Dose: 324 mg Citalopram Hydrobromide (Celexa) 20 mg PO DAILY [facility] Al Hydroxide/Mg Hydroxide 15 ml/ Metoclopramide HCl 5 mg/Lidocaine HCl 5 ml 0 ml PO ONETIME ONE Stop: 05/16/19 14:13 Last Admin: 05/16/19 14:48 Dose: 5 each Ketorolac Tromethamine (Toradol) 30 mg IVPUSH ONETIME ONE Stop: 05/16/19 15:20 Last Admin: 05/16/19 15:44 Dose: 30 mg Nitroglycerin (Nitrostat) 0.4 mg SL Q5M PRN PRN Reason: Chest Pain Last Admin: 05/16/19 14:36 Dose: 0.4 mg Pantoprazole Sodium (Protonix Iv) 80 mg IVPUSH .BOLUS ONE Stop: 05/16/19 14:12 Last Admin: 05/16/19 14:25 Dose: 80 mg Pantoprazole Sodium (Protonix) 40 mg PO ACBREAKFAST JOELLE Last Admin: 05/17/19 06:36 Dose: 40 mg Pramipexole Dihydrochloride (Mirapex) 0.5 mg PO TID JOELLE - Exam General: Alert, Oriented Neck: Supple Lungs: Clear to Auscultation, Normal Respiratory Effort Cardiovascular: Regular Rate, Regular Rhythm GI/Abdominal Exam: Normal Bowel Sounds, Soft, Non-Tender Extremities: Non-Tender, No Pedal Edema Skin: Warm, Dry, Intact - Problem List Review Problem List Initiated/Reviewed/Updated: Yes - My Orders Last 24 Hours: My Active Orders 05/16/19 16:15 Telemetry Monitoring [Cardiac Monitoring] [RC] . DIRECTED 05/16/19 17:07 Albuterol [Ventolin HFA] 0 gm INH ASDIRECTED PRN 05/16/19 17:33 Acetaminophen [Tylenol] 650 mg PO Q6H PRN 05/16/19 17:49 Antiembolic Devices [RC] PER UNIT ROUTINE Oxygen Therapy [RC] PRN VTE/DVT Education [RC] PER UNIT ROUTINE Vital Signs [RC] Q4H Sequential Compression Device [OM.PC] Per Unit Routine Resuscitation Status Routine 05/16/19 21:00 Cyclobenzaprine [Flexeril] 10 mg PO BEDTIME 05/16/19 21:30 Pramipexole [Mirapex] 1 mg PO BEDTIME 05/16/19 Dinner Heart Healthy Diet [DIET] 05/17/19 07:08 Notify Provider Consults [RC] ASDIRECTED Consult to Physician [CONS] Routine 05/17/19 07:15 Pantoprazole [ProTONIX IV] 40 mg Sodium Chloride 0.9% [Normal Saline] 10 ml IV Q12H 05/17/19 09:00 Citalopram [Celexa] 40 mg PO DAILY - Plan Plan:: 53 yo female who presented with chest pain. She has ruled out for acute coronary syndrome with serial negative cardiac enzymes. Pain is likely GI in origin. I offered CT scan of chest but patient declined. She has requested consultation for EGD. I have called Dr. Bill and he will see the patient.
[2019-05-17] MEDS ORDERED: Pantoprazole 40 MG in Sodium Chloride 0.9% 10 ML IV SCH (07:15)
[2019-05-17] MEDS ORDERED: Pantoprazole 40 MG Tab.CR PO SCH (07:30)
[2019-05-17 07:39] VITALS: BP 148/86; PULSE 71
[2019-05-17] MEDS ORDERED: Citalopram 20 MG Tab PO SCH ×2 (09:00)
--- NOTE | 2019-05-17 10:27 | PCM.DCSUM1 ---
Discharge Summary - Discharge Data Discharge Date: 05/17/19 Discharge Disposition: Home, Self-Care 01 Condition: Stable - Referral to Home Health Primary Care Physician: Corrina Jones DO - Patient Summary/Data Consults: Consultations 05/17/19 07:08 Consult to Physician [CONS] Routine Hospital Course: 53 yo female with pmh of GERD, anxiety,and depression who presented with epigastric pain. She was ruled out for acute coronary syndrome with serial negative cardiac enzymes and EKG. Dr. Bill was consulted and planned on EGD. Patient earlier this morning stated she would not want to leave the hospital without an EGD. She is now stating she wants her EGD done at [place]. Patient was then adamant about leaving immediately. While she was packing her belongings I recommended increasing her protonix to twice a day and starting Carafate. She agreed to this plan and I was to send prescriptions to her pharmacy. Patient walked out in front of me and did not wait for written instructions. - Discharge Plan Prescriptions/Med Rec: Pantoprazole Sodium [Protonix] 40 mg PO BID #30 tablet. Sucralfate [Carafate] 1 gm PO TIDAC #21 cup Home Medications: Home Meds Citalopram [Citalopram HBr] 40 mg PO DAILY 11/02/13 [History] Furosemide [Lasix] 20 mg PO DAILY PRN 11/02/13 [History] Albuterol Sulfate [Ventolin Hfa] 1 puff INH ASDIRECTED PRN 05/21/16 [History] Cyanocobalamin/Folic AC/Vit B6 [Folbee] 1 tab PO DAILY 05/21/16 [History] Pramipexole [Mirapex] 0.5 mg PO TID 05/26/16 [History] Cyclobenzaprine HCl 10 mg PO TID PRN 05/16/19 [History] Pantoprazole Sodium [Protonix] 40 mg PO BID #30 tablet. 05/17/19 [Rx] Sucralfate [Carafate] 1 gm PO TIDAC #21 cup 05/17/19 [Rx] Patient Handouts: Nonspecific Chest Pain, [id number] Referrals: [facility] [Outside] Yuriy Jeffers MD [Ordering Only Provider] - 05/23/19 7:45 am (Dr Jones was not available till end of May. ) - Discharge Summary/Plan Comment DC Time >30 min.: No - Patient Data Vitals - Most Recent: Last Vital Signs Temp 36.3 C 05/17/19 07:38 Pulse 71 05/17/19 07:38 Resp 14 05/17/19 07:38 BP 148/86 H 05/17/19 07:38 Pulse Ox 97 05/17/19 07:38 Weight - Most Recent: 94 kg I&O - Last 24 hours: Intake & Output 05/16/19 05/17/19 05/17/19 22:59 06:59 14:59 Intake Total 200 Output Total 400 Balance -200 Lab Results - Last 24 hrs: Laboratory Results - last 24 hr 05/16/19 05/16/19 05/16/19 Range/Units 14:05 14:05 14:05 WBC 6.60 (4.0-11.0) K/uL RBC 5.07 (4.30-5.90) M/uL Hgb 14.9 (12.0-16.0) g/dL Hct 44.2 (36.0-46.0) % MCV 87.2 (80.0-98.0) fL MCH 29.4 (27.0-32.0) pg MCHC 33.7 (31.0-37.0) g/dL RDW Std Deviation 56.5 (28.0-62.0) fl RDW Coeff of Smita 18 H (11.0-15.0) % Plt Count 248 (150-400) K/uL MPV 9.30 (7.40-12.00) fL Neut % (Auto) 66.3 (48.0-80.0) % Lymph % (Auto) 24.4 (16.0-40.0) % [place] % (Auto) 8.0 (0.0-15.0) % Eos % (Auto) 1.1 (0.0-7.0) % Baso % (Auto) 0.2 (0.0-1.5) % Neut # (Auto) 4.4 (1.4-5.7) K/uL Lymph # (Auto) 1.6 (0.6-2.4) K/uL [place] # (Auto) 0.5 (0.0-0.8) K/uL Eos # (Auto) 0.1 (0.0-0.7) K/uL Baso # (Auto) 0.0 (0.0-0.1) K/uL Nucleated RBC % 0.0 /100WBC Nucleated RBCs # 0 K/uL Sodium 140 (136-145) mmol/L Potassium 4.0 (3.5-5.1) mmol/L Chloride 105 (98-107) mmol/L Carbon Dioxide 25.1 (21.0-32.0) mmol/L BUN 18 (7.0-18.0) mg/dL Creatinine 0.9 (0.6-1.0) mg/dL Est Cr Clr Drug Dosing TNP Estimated GFR (MDRD) > 60.0 ml/min Glucose 89 (74-106) mg/dL Calcium 8.9 (8.5-10.1) mg/dL Total Bilirubin 0.2 (0.2-1.0) mg/dL AST 27 (15-37) IU/L ALT 31 (14-63) IU/L Alkaline Phosphatase 128 H (46-116) U/L Troponin I < 0.050 (0.000-0.056) ng/mL Total Protein 7.9 (6.4-8.2) g/dL Albumin 4.2 (3.4-5.0) g/dL Globulin 3.7 (2.6-4.0) g/dL Albumin/Globulin Ratio 1.1 (0.9-1.6) Lipase 169 (73-393) U/L 05/16/19 05/17/19 05/17/19 Range/Units 20:00 02:08 05:43 WBC 6.09 (4.0-11.0) K/uL RBC 4.66 (4.30-5.90) M/uL Hgb 13.7 (12.0-16.0) g/dL Hct 41.0 (36.0-46.0) % MCV 88.0 (80.0-98.0) fL MCH 29.4 (27.0-32.0) pg MCHC 33.4 (31.0-37.0) g/dL RDW Std Deviation 57.0 (28.0-62.0) fl RDW Coeff of Smita 18 H (11.0-15.0) % Plt Count 203 (150-400) K/uL MPV 9.10 (7.40-12.00) fL Neut % (Auto) 52.1 (48.0-80.0) % Lymph % (Auto) 35.5 (16.0-40.0) % [place] % (Auto) 9.7 (0.0-15.0) % Eos % (Auto) 2.5 (0.0-7.0) % Baso % (Auto) 0.2 (0.0-1.5) % Neut # (Auto) 3.2 (1.4-5.7) K/uL Lymph # (Auto) 2.2 (0.6-2.4) K/uL [place] # (Auto) 0.6 (0.0-0.8) K/uL Eos # (Auto) 0.2 (0.0-0.7) K/uL Baso # (Auto) 0.0 (0.0-0.1) K/uL Nucleated RBC % 0.0 /100WBC Nucleated RBCs # 0 K/uL Sodium (136-145) mmol/L Potassium (3.5-5.1) mmol/L Chloride (98-107) mmol/L Carbon Dioxide (21.0-32.0) mmol/L BUN (7.0-18.0) mg/dL Creatinine (0.6-1.0) mg/dL Est Cr Clr Drug Dosing Estimated GFR (MDRD) ml/min Glucose (74-106) mg/dL Calcium (8.5-10.1) mg/dL Total Bilirubin (0.2-1.0) mg/dL AST (15-37) IU/L ALT (14-63) IU/L Alkaline Phosphatase (46-116) U/L Troponin I < 0.050 < 0.050 (0.000-0.056) ng/mL Total Protein (6.4-8.2) g/dL Albumin (3.4-5.0) g/dL Globulin (2.6-4.0) g/dL Albumin/Globulin Ratio (0.9-1.6) Lipase (73-393) U/L 05/17/19 Range/Units 05:43 WBC (4.0-11.0) K/uL RBC (4.30-5.90) M/uL Hgb (12.0-16.0) g/dL Hct (36.0-46.0) % MCV (80.0-98.0) fL MCH (27.0-32.0) pg MCHC (31.0-37.0) g/dL RDW Std Deviation (28.0-62.0) fl RDW Coeff of Smita (11.0-15.0) % Plt Count (150-400) K/uL MPV (7.40-12.00) fL Neut % (Auto) (48.0-80.0) % Lymph % (Auto) (16.0-40.0) % [place] % (Auto) (0.0-15.0) % Eos % (Auto) (0.0-7.0) % Baso % (Auto) (0.0-1.5) % Neut # (Auto) (1.4-5.7) K/uL Lymph # (Auto) (0.6-2.4) K/uL Freestone # (Auto) (0.0-0.8) K/uL Eos # (Auto) (0.0-0.7) K/uL Baso # (Auto) (0.0-0.1) K/uL Nucleated RBC % /100WBC Nucleated RBCs # K/uL Sodium 140 (136-145) mmol/L Potassium 4.0 (3.5-5.1) mmol/L Chloride 106 (98-107) mmol/L Carbon Dioxide 25.8 (21.0-32.0) mmol/L BUN 20 H (7.0-18.0) mg/dL Creatinine 0.8 (0.6-1.0) mg/dL Est Cr Clr Drug Dosing 70.23 Estimated GFR (MDRD) > 60.0 ml/min Glucose 91 (74-106) mg/dL Calcium 8.6 (8.5-10.1) mg/dL Total Bilirubin 0.3 (0.2-1.0) mg/dL AST 17 (15-37) IU/L ALT 30 (14-63) IU/L Alkaline Phosphatase 101 (46-116) U/L Troponin I (0.000-0.056) ng/mL Total Protein 6.7 (6.4-8.2) g/dL Albumin 3.5 (3.4-5.0) g/dL Globulin 3.2 (2.6-4.0) g/dL Albumin/Globulin Ratio 1.1 (0.9-1.6) Lipase (73-393) U/L Med Orders - Current: Current Medications Acetaminophen (Tylenol) 650 mg PO Q6H PRN PRN Reason: Pain Last Admin: 05/17/19 07:02 Dose: 650 mg Albuterol (Ventolin Hfa) 0 gm INH ASDIRECTED PRN PRN Reason: Shortness of Breath Citalopram Hydrobromide (Celexa) 40 mg PO DAILY [facility] Last Admin: 05/17/19 09:54 Dose: Not Given Cyclobenzaprine HCl (Flexeril) 10 mg PO BEDTIME JOELLE Last Admin: 05/16/19 22:06 Dose: 10 mg Pantoprazole Sodium 40 mg/ (Sodium Chloride) 10 mls @ 300 mls/hr IV Q12H JOELLE Last Admin: 05/17/19 08:01 Dose: 300 mls/hr Pramipexole Dihydrochloride (Mirapex) 1 mg PO BEDTIME JOELLE Last Admin: 05/16/19 22:07 Dose: 1 mg Sodium Chloride (Saline Flush) 10 ml FLUSH ASDIRECTED PRN PRN Reason: Keep Vein Open Last Admin: 05/16/19 14:27 Dose: 10 ml Sodium Chloride (Saline Flush) 2.5 ml FLUSH ASDIRECTED PRN PRN Reason: Keep Vein Open Last Admin: 05/16/19 14:27 Dose: 2.5 ml Discontinued Medications Aspirin (Aspirin) 324 mg PO ONETIME ONE Stop: 05/16/19 14:03 Last Admin: 05/16/19 14:24 Dose: 324 mg Citalopram Hydrobromide (Celexa) 20 mg PO DAILY [facility] Al Hydroxide/Mg Hydroxide 15 ml/ Metoclopramide HCl 5 mg/Lidocaine HCl 5 ml 0 ml PO ONETIME ONE Stop: 05/16/19 14:13 Last Admin: 05/16/19 14:48 Dose: 5 each Ketorolac Tromethamine (Toradol) 30 mg IVPUSH ONETIME ONE Stop: 05/16/19 15:20 Last Admin: 05/16/19 15:44 Dose: 30 mg Nitroglycerin (Nitrostat) 0.4 mg SL Q5M PRN PRN Reason: Chest Pain Last Admin: 05/16/19 14:36 Dose: 0.4 mg Pantoprazole Sodium (Protonix Iv) 80 mg IVPUSH .BOLUS ONE Stop: 05/16/19 14:12 Last Admin: 05/16/19 14:25 Dose: 80 mg Pantoprazole Sodium (Protonix) 40 mg PO ACBREAKFAST JOELLE Last Admin: 05/17/19 06:36 Dose: 40 mg Pramipexole Dihydrochloride (Mirapex) 0.5 mg PO TID JOELLE
--- NOTE | 2019-05-17 11:29 | PCM.SN ---
- Free Text/Narrative Note: Pt seen, chart reviewed; tentatively schedule for egd in the morning; tks for the consult and care of this nice lady
--- NOTE | 2019-05-17 13:47 | CONS ---
DATE OF CONSULTATION: DATE OF : 1965 PRIMARY CARE PHYSICIAN: Corrina Jones DO REASON FOR CONSULTATION: This is a consult from Dr. Almodovar who called a couple hours ago for possible EGD for persisting chest pain. HISTORY OF PRESENT ILLNESS: The patient is a 53-year-old lady, obese, BMI of 36, and complained of a 10-year history of epigastric pain. Pain is on a pain scale 3, constantly, getting worse. Sought help in the hospital through the emergency room and was admitted for further management. The patient remarked that she had a gastric bypass surgery 10 years ago and had EGD prior to that, and since the gastric bypass, she did not have any more EGD done. She complained about this acid reflux situation for the past 10 years and is concerned whether this is malignant. She remarked that her pain is much worse when she is lying down and her pain is all the time, 24/7, but mostly in the daytime. Denied bright red blood per rectum. Denied black tarry stool. Denied weight loss without intention. PAST MEDICAL HISTORY: Significant for 16 surgeries as the patient remarked to the doctor. She has hypertension and denied diabetes, PA, CVA. SOCIAL HISTORY: She denied tobacco or alcohol abuse. ALLERGIES: Please refer to nursing for details. MEDICATIONS: Please refer to nursing for details. PHYSICAL EXAMINATION: GENERAL: A very pleasant lady, surprisingly is standing by the window, not lying down. The patient was cooperative on exam and polite. HEENT: Normocephalic and atraumatic. Sclerae anicteric. LUNGS: Clear to auscultation. HEART: Regular rate and rhythm. ABDOMEN: Soft, nondistended. No pulsating tender midline abdominal structure. No hernia appreciated. Mild subjective tenderness in the epigastrium. No rebound tenderness. LABORATORY DATA: Upon consultation, white count 6, H and H are 14 and 41, and platelets are 203. Sodium is 140, potassium is 4.0, BUN is 20, creatinine is 0.8. Total bilirubin is 0.3, AST is 17, ALT is 30, alkaline phosphatase is 101. Amylase 51, lipase 169. No UA sent. IMPRESSION: Epigastric pain for 10 years, on and off, however, persistent 24/7. Does not sound really like acid reflux. The patient has gastric bypass, which is known as the highest form of surgical treatment for acid reflux and it is a little bit not clear regarding her chest pain situation and rarely people have 10 years of chest pain without esophagogastroduodenoscopy followup. Agreed to schedule her esophagogastroduodenoscopy for tomorrow when scheduling is agreeing, and the patient agreed for the esophagogastroduodenoscopy, and at the same time, the patient asked for the credential of the examiner and how long he has been practicing and how long he has been doing esophagogastroduodenoscopy exams. We will tentatively schedule the esophagogastroduodenoscopy for tomorrow. ADDENDUM: I was informed that the patient decided to have it done somewhere else. As always, thank you for the kind referral. GENNY DOBBINS /[id number] AMILCAR
== END 2019-05-17 09:50 | disposition left against medical advice (07) ==
LOC: MW.ED 13:53 → MW.MS 15:38
PROVIDERS: ADMIT Internal Medicine; ATTEND Internal Medicine
DX: R10.13 Epigastric pain (principal); I10 Essential (primary) hypertension; J45.909 Unspecified asthma, uncomplicated; K21.9 Gastro-esophageal reflux disease without esophagitis; F32.9 Major depressive disorder, single episode, unspecified; M19.90 Unspecified osteoarthritis, unspecified site; E66.9 Obesity, unspecified; Z88.1 Allergy status to other antibiotic agents; Z91.011 Allergy to milk products; Z88.5 Allergy status to narcotic agent; Z88.8 Allergy status to other drugs, medicaments and biological substances; Z88.2 Allergy status to sulfonamides; Z79.899 Other long term (current) drug therapy; Z87.891 Personal history of nicotine dependence
CPT/HCPCS: 36415; 71045; 80053; 83690; 84484; 85025; 93005; 96374; 99285; A9270; C9113; J1885; J7050; 99283

== ENCOUNTER 2020-11-05 09:18 | Emergency (ER) | payer BC ==
[2020-11-05] MEDS ORDERED: Sodium Chloride 0.9% 10 ML Syringe FLUSH PRN (09:34)
[2020-11-05] MEDS ORDERED: Sodium Chloride 0.9% 2.5 ML Syringe FLUSH PRN (09:34)
[2020-11-05] MEDS ORDERED: Metoclopramide 10 MG/2 ML SDV IVPUSH ONE (09:48)
[2020-11-05] MEDS ORDERED: Alum Hydrox/Mag Hydrox/Simeth 15 ML, Lidocaine 2% 5 ML PO ONE ×2 (09:48)
[2020-11-05] MEDS ORDERED: diphenhydrAMINE 50 MG/ML SDV IVPUSH ONE (09:54)
--- NOTE | 2020-11-05 09:54 | EDM.PDOC ---
ED HPI GENERAL MEDICAL PROBLEM - General Chief Complaint: Chest Pain Stated Complaint: CP Time Seen by Provider: 11/05/20 09:20 Source of Information: Reports: Patient History Limitations: Reports: No Limitations - History of Present Illness INITIAL COMMENTS - FREE TEXT/NARRATIVE: Is a 55-year-old female with history of GERD presents today for epigastric pain. Patient that she has chest pain as well. Patient states feels like this in her chest. Patient states that it makes the pain better and worse. Patient did take 2 aspirin before arrival. Patient had recurrent GERD issues and is taking Protonix at home was not helping. Patient states he is never had a endoscopy. 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 chest Pain Score (Numeric/FACES): 7 - Related Data Allergies Allergy/AdvReac Type Severity Reaction Status Date / Time codeine Allergy Unknown unknown Verified 11/05/20 09:44 cefaclor [From Ceclor] Allergy Anaphylactic Verified 11/05/20 09:44 Shock milk Allergy Drowsiness Verified 11/05/20 09:44 morphine Allergy Vomiting Verified 11/05/20 09:44 prednisone Allergy Hives Verified 11/05/20 09:44 sulfamethoxazole Allergy Anaphylactic Verified 11/05/20 09:44 [From Bactrim] Shock trimethoprim [From Bactrim] Allergy Anaphylactic Verified 11/05/20 09:44 Shock steroids Allergy Anaphylactic Uncoded 11/05/20 09:44 Shock Home Meds: Home Meds Citalopram [Citalopram HBr] 40 mg PO DAILY 11/02/13 [History] Furosemide [Lasix] 20 mg PO DAILY PRN 11/02/13 [History] Albuterol Sulfate [Ventolin Hfa] 1 puff INH ASDIRECTED PRN 05/21/16 [History] Cyanocobalamin/Folic AC/Vit B6 [Folbee] 1 tab PO DAILY 05/21/16 [History] Pramipexole [Mirapex] 0.5 mg PO TID 05/26/16 [History] Cyclobenzaprine HCl 10 mg PO TID PRN 05/16/19 [History] Pantoprazole Sodium [Protonix] 40 mg PO BID #30 tablet. 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: Musculoskeletal History: Reports: Arthritis, Back Pain, Chronic, Fibromyalgia Neurological History: Reports: Concussion, Seizure, Vertigo Psychiatric History: Reports: Anxiety, Depression Endocrine/Metabolic History: Reports: Obesity/BMI 30+ Hematologic History: Reports: Blood Transfusion(s) Other Hematologic History: states had transfusion following her tonsillectomy Dermatologic History: Reports: None - Infectious Disease History Infectious Disease History: Reports: Chicken Pox - Past Surgical History Head Surgeries/Procedures: Reports: None HEENT Surgical History: Reports: Tonsillectomy Cardiovascular Surgical History: Reports: None Respiratory Surgical History: Reports: None GI Surgical History: Reports: Bariatric Procedure, Guy Fundoplication Other GI Surgeries/Procedures: tummy tuck Female Surgical History: Reports: Breast Reduction, Section, Hysterectomy, Salpingo-Oophorectomy Endocrine Surgical History: Reports: None Musculoskeletal Surgical History: Reports: Arthroscopic Knee, Carpal Tunnel Other Musculoskeletal Surgeries/Procedures:: hand surgery x6 including bilat. CTR, tendon releases and bone graft to left thumb, right knee arthroscopy x2 Dermatological Surgical History: Reports: Plastic Surgical Reconstruction/Repair Social & Family History - Family History Family Medical History: No Pertinent Family History - Caffeine Use Caffeine Use: Reports: Coffee, Soda, Tea ED ROS GENERAL - Review of Systems Review Of Systems: See Below Constitutional: Reports: No Symptoms HEENT: Reports: No Symptoms Respiratory: Reports: No Symptoms Cardiovascular: Reports: Chest Pain Endocrine: Reports: No Symptoms GI/Abdominal: Reports: Abdominal Pain : Reports: No Symptoms Musculoskeletal: Reports: No Symptoms Skin: Reports: No Symptoms Neurological: Reports: No Symptoms Psychiatric: Reports: No Symptoms Hematologic/Lymphatic: Reports: No Symptoms Immunologic: Reports: No Symptoms ED EXAM, GI/ABD - Physical Exam Exam: See Below Exam Limited By: No Limitations General Appearance: Alert, WD/WN, No Apparent Distress Respiratory/Chest: No Respiratory Distress, Lungs Clear, Normal Breath Sounds Cardiovascular: Normal Peripheral Pulses, Regular Rate, Rhythm GI/Abdominal Exam: Normal Bowel Sounds, Soft, Tender Extremities: Normal Inspection, Normal Range of Motion Neurological: Alert, Oriented, CN II-XII Intact, Normal Cognition, Normal Gait #1 Interpretation EKG Date: 11/05/20 Time: 09:25 Rhythm: NSR Rate (Beats/Min): 81 ST-T: Normal Course - Vital Signs Last Recorded V/S: Last Vital Signs Temp 98.0 F 11/05/20 10:54 Pulse 82 11/05/20 12:26 Resp 20 11/05/20 12:26 BP 140/86 11/05/20 12:26 Pulse Ox 97 11/05/20 12:26 - Orders/Labs/Meds Orders: Active Orders 24 hr Category Date Time Status EKG Documentation Completion [RC] STAT Care 11/05/20 09:35 Active Sodium Chloride 0.9% [Saline Flush] Med 11/05/20 09:34 Active 10 ml FLUSH ASDIRECTED PRN Sodium Chloride 0.9% [Saline Flush] Med 11/05/20 09:34 Active 2.5 ml FLUSH ASDIRECTED PRN Saline Lock Insert [OM.PC] Stat Oth 11/05/20 09:35 Ordered Medication Orders Sodium Chloride (Sodium Chloride 0.9% 10 Ml Syringe) 10 ml FLUSH ASDIRECTED PRN PRN Reason: Keep Vein Open Last Admin: 11/05/20 10:21 Dose: 10 ml Documented by: YOON Sodium Chloride (Sodium Chloride 0.9% 2.5 Ml Syringe) 2.5 ml FLUSH ASDIRECTED PRN PRN Reason: Keep Vein Open Last Admin: 11/05/20 10:21 Dose: 2.5 ml Documented by: YOON Labs: Laboratory Tests 11/05/20 11/05/20 11/05/20 Range/Units 09:30 09:30 12:14 WBC 9.39 (4.0-11.0) K/uL RBC 4.77 (4.30-5.90) M/uL Hgb 14.9 (12.0-16.0) g/dL Hct 43.5 (36.0-46.0) % MCV 91.2 (80.0-98.0) fL MCH 31.2 (27.0-32.0) pg MCHC 34.3 (31.0-37.0) g/dL RDW Std Deviation 41.4 (28.0-62.0) fl RDW Coeff of Smita 12 (11.0-15.0) % Plt Count 277 (150-400) K/uL MPV 9.30 (7.40-12.00) fL Neut % (Auto) 80.1 H (48.0-80.0) % Lymph % (Auto) 15.3 L (16.0-40.0) % [place] % (Auto) 4.2 (0.0-15.0) % Eos % (Auto) 0.3 (0.0-7.0) % Baso % (Auto) 0.1 (0.0-1.5) % Neut # (Auto) 7.5 H (1.4-5.7) K/uL Lymph # (Auto) 1.4 (0.6-2.4) K/uL [place] # (Auto) 0.4 (0.0-0.8) K/uL Eos # (Auto) 0.0 (0.0-0.7) K/uL Baso # (Auto) 0.0 (0.0-0.1) K/uL Nucleated RBC % 0.0 /100WBC Nucleated RBCs # 0 K/uL Sodium 137 (136-145) mmol/L Potassium 3.6 (3.5-5.1) mmol/L Chloride 101 (98-107) mmol/L Carbon Dioxide 25.8 (21.0-32.0) mmol/L BUN 11 (7.0-18.0) mg/dL Creatinine 0.7 (0.6-1.0) mg/dL Est Cr Clr Drug Dosing 78.41 mL/min Estimated GFR (MDRD) > 60.0 ml/min Glucose 142 H (74-106) mg/dL Calcium 9.0 (8.5-10.1) mg/dL Total Bilirubin 0.3 (0.2-1.0) mg/dL AST 25 (15-37) IU/L ALT 44 (14-63) IU/L Alkaline Phosphatase 133 H (46-116) U/L Troponin I < 0.050 (0.000-0.056) ng/mL Total Protein 7.8 (6.4-8.2) g/dL Albumin 3.9 (3.4-5.0) g/dL Globulin 3.9 (2.6-4.0) g/dL Albumin/Globulin Ratio 1.0 (0.9-1.6) Urine Color STRAW Urine Appearance CLEAR Urine pH 6.5 (5.0-8.0) Ur Specific [place] 1.010 (1.001-1.035) Urine Protein NEGATIVE (NEGATIVE) mg/dL Urine Glucose (UA) NEGATIVE (NEGATIVE) mg/dL Urine Ketones NEGATIVE (NEGATIVE) mg/dL Urine Occult Blood NEGATIVE (NEGATIVE) Urine Nitrite NEGATIVE (NEGATIVE) Urine Bilirubin NEGATIVE (NEGATIVE) Urine Urobilinogen 0.2 (<2.0) EU/dL Ur Leukocyte Esterase NEGATIVE (NEGATIVE) 11/05/20 Range/Units 12:30 WBC (4.0-11.0) K/uL RBC (4.30-5.90) M/uL Hgb (12.0-16.0) g/dL Hct (36.0-46.0) % MCV (80.0-98.0) fL MCH (27.0-32.0) pg MCHC (31.0-37.0) g/dL RDW Std Deviation (28.0-62.0) fl RDW Coeff of Smita (11.0-15.0) % Plt Count (150-400) K/uL MPV (7.40-12.00) fL Neut % (Auto) (48.0-80.0) % Lymph % (Auto) (16.0-40.0) % [place] % (Auto) (0.0-15.0) % Eos % (Auto) (0.0-7.0) % Baso % (Auto) (0.0-1.5) % Neut # (Auto) (1.4-5.7) K/uL Lymph # (Auto) (0.6-2.4) K/uL [place] # (Auto) (0.0-0.8) K/uL Eos # (Auto) (0.0-0.7) K/uL Baso # (Auto) (0.0-0.1) K/uL Nucleated RBC % /100WBC Nucleated RBCs # K/uL Sodium (136-145) mmol/L Potassium (3.5-5.1) mmol/L Chloride (98-107) mmol/L Carbon Dioxide (21.0-32.0) mmol/L BUN (7.0-18.0) mg/dL Creatinine (0.6-1.0) mg/dL Est Cr Clr Drug Dosing mL/min Estimated GFR (MDRD) ml/min Glucose (74-106) mg/dL Calcium (8.5-10.1) mg/dL Total Bilirubin (0.2-1.0) mg/dL AST (15-37) IU/L ALT (14-63) IU/L Alkaline Phosphatase (46-116) U/L Troponin I < 0.050 (0.000-0.056) ng/mL Total Protein (6.4-8.2) g/dL Albumin (3.4-5.0) g/dL Globulin (2.6-4.0) g/dL Albumin/Globulin Ratio (0.9-1.6) Urine Color Urine Appearance Urine pH (5.0-8.0) Ur Specific [place] (1.001-1.035) Urine Protein (NEGATIVE) mg/dL Urine Glucose (UA) (NEGATIVE) mg/dL Urine Ketones (NEGATIVE) mg/dL Urine Occult Blood (NEGATIVE) Urine Nitrite (NEGATIVE) Urine Bilirubin (NEGATIVE) Urine Urobilinogen (<2.0) EU/dL Ur Leukocyte Esterase (NEGATIVE) Meds: Medications Generic Name Dose Route Start Last Admin Trade Name Freq PRN Reason Stop Dose Admin Sodium Chloride 10 ml 11/05/20 09:34 11/05/20 10:21 Sodium Chloride 0.9% 10 Ml Syringe FLUSH 10 ml ASDIRECTED PRN Administration Keep Vein Open Sodium Chloride 2.5 ml 11/05/20 09:34 11/05/20 10:21 Sodium Chloride 0.9% 2.5 Ml Syringe FLUSH 2.5 ml ASDIRECTED PRN Administration Keep Vein Open Discontinued Medications Generic Name Dose Route Start Last Admin Trade Name Freq PRN Reason Stop Dose Admin Al Hydroxide/Mg Hydroxide 15 0 ml 11/05/20 09:48 11/05/20 10:07 ml/ Lidocaine HCl 5 ml PO 11/05/20 09:49 1 each ONETIME ONE Administration Diphenhydramine HCl 25 mg 11/05/20 09:54 11/05/20 10:07 Diphenhydramine 50 Mg/Ml Sdv IVPUSH 11/05/20 09:55 25 mg ONETIME ONE Administration Metoclopramide HCl 10 mg 11/05/20 09:48 11/05/20 10:08 Metoclopramide 10 Mg/2 Ml Sdv IVPUSH 11/05/20 09:49 10 mg ONETIME ONE Administration - Re-Assessments/Exams Free Text/Narrative Re-Assessment/Exam: 11/05/20 13:08 Patient tropes were negative x2. Patient pain is improved after the Maalox and Reglan. We can refer patient to surgery to have a EGD as patient has been requesting for the past 2 years. Patient is stable for discharge home and give strict return precautions. Departure - Departure Time of Disposition: 13:10 Disposition: Home, Self-Care 01 Condition: Good Clinical Impression: Epigastric pain - Discharge Information *PRESCRIPTION DRUG MONITORING PROGRAM REVIEWED*: Not Applicable *COPY OF PRESCRIPTION DRUG MONITORING REPORT IN PATIENT [place]: Not Applicable Instructions: Abdominal Pain, Adult, [id number] Forms: ED Department Discharge Additional Instructions: The following information is given to patients seen in the emergency department who are being discharged to home. This information is to outline your options for follow-up care. We provide all patients seen in our emergency department with a follow-up referral. The need for follow-up, as well as the timing and circumstances, are variable depending upon the specifics of your emergency department visit. If you don't have a primary care physician on staff, we will provide you with a referral. We always advise you to contact your personal physician following an emergency department visit to inform them of the circumstance of the visit and for follow-up with them and/or the need for any referrals to a consulting specialist. The emergency department will also refer you to a specialist when appropriate. This referral assures that you have the opportunity for follow-up care with a specialist. All of these measure are taken in an effort to provide you with optimal care, which includes your follow-up. Under all circumstances we always encourage you to contact your private physician who remains a resource for coordinating your care. When calling for follow-up care, please make the office aware that this follow-up is from your recent emergency room visit. If for any reason you are refused follow-up, please contact the [facility] Emergency Department at and asked to speak to the emergency department charge nurse. Please follow up with your primary care physician. If you do not have a primary care physician, see below: [facility] - General Surgery Professional Building [address] [place] [address], [address] [place] [address] You were seen today for pain in your upper abdomen. We did EKG labs to make sure your heart was okay. You have had this pain for the past is likely related to your GERD. Above the number for general surgery we can have a follow-up with we spoke to Dr. Mondragon he may be able to do a endoscopy for you. Please call them and schedule appointment. You have any increased pain in the upper abdomen or chest or other concerning symptoms please return to ED immediately. Sepsis Event Note (ED) - Evaluation Sepsis Screening Result: No Definite Risk - Focused Exam Vital Signs: Vital Signs Temp Pulse Resp BP Pulse Ox 11/05/20 12:26 82 20 140/86 97 11/05/20 11:35 78 18 162/82 H 97 11/05/20 10:54 98.0 F 72 18 152/82 H 97 11/05/20 10:12 78 18 166/90 H 97 11/05/20 09:33 97.2 F 82 20 179/93 H 97 - My Orders Last 24 Hours: My Active Orders 11/05/20 09:34 Sodium Chloride 0.9% [Saline Flush] 10 ml FLUSH ASDIRECTED PRN Sodium Chloride 0.9% [Saline Flush] 2.5 ml FLUSH ASDIRECTED PRN 11/05/20 09:35 EKG Documentation Completion [RC] STAT Saline Lock Insert [OM.PC] Stat - Assessment/Plan Last 24 Hours: My Active Orders 11/05/20 09:34 Sodium Chloride 0.9% [Saline Flush] 10 ml FLUSH ASDIRECTED PRN Sodium Chloride 0.9% [Saline Flush] 2.5 ml FLUSH ASDIRECTED PRN 11/05/20 09:35 EKG Documentation Completion [RC] STAT Saline Lock Insert [OM.PC] Stat Plan: Patient a 55-year-old female presents today for epigastric pain and chest pain. Patient has feeling pressure in her chest. Patient has a heart score of 3 for age and risk factors. Will reassess patient provide labs EKG x-ray and reassess.
[2020-11-05 10:21] LABS: BLOOD UREA NITROGEN,BUN 11 mg/dL (7.0-18.0); CARBON DIOXIDE,CO2 25.8 mmol/L (21.0-32.0); CHLORIDE,CL 101 mmol/L (98-107); GLUCOSE RANDOM 142 mg/dL (74-106); POTASSIUM,K 3.6 mmol/L (3.5-5.1); SODIUM,NA 137 mmol/L (136-145)
--- NOTE | 2020-11-05 10:21 | CR ---
HISTORY: Chest pain. TECHNIQUE: Portable frontal view the chest. COMPARISON: Chest x-ray 05/16/2019. FINDINGS: No airspace consolidation. No pleural effusion or pneumothorax. Pulmonary vasculature and cardiomediastinal silhouette are within normal limits. IMPRESSION: No cardiopulmonary abnormality. Dictated by Alberto Bose MD @ 11/05/2020 10:19:[address] Alberto Bose @ Nov 05 2020 10:19AM
[2020-11-05 12:27] VITALS: PULSE 82
[2020-11-05 13:22] VITALS: BP 151/92
== END 2020-11-05 13:20 | disposition home or self-care (01) ==
LOC: MW.ED 09:18
DX: R10.13 Epigastric pain (principal); R07.9 Chest pain, unspecified; I10 Essential (primary) hypertension; J45.909 Unspecified asthma, uncomplicated; K21.9 Gastro-esophageal reflux disease without esophagitis; M19.90 Unspecified osteoarthritis, unspecified site; E66.9 Obesity, unspecified; Z68.35 Body mass index [BMI] 35.0-35.9, adult; Z88.8 Allergy status to other drugs, medicaments and biological substances; Z88.5 Allergy status to narcotic agent; Z88.1 Allergy status to other antibiotic agents; Z91.011 Allergy to milk products; Z88.2 Allergy status to sulfonamides; Z79.82 Long term (current) use of aspirin; Z79.899 Other long term (current) drug therapy
CPT/HCPCS: 36415; 71045; 80053; 81003; 84484; 85025; 93005; 96374; 96375; 99285; A9270; J1200; J2765

== ENCOUNTER 2021-02-26 07:32 | Emergency (ER) | payer BC ==
--- NOTE | 2021-02-26 07:45 | EDM.PDOC ---
ED HPI GENERAL MEDICAL PROBLEM - General Chief Complaint: ENT Problem Stated Complaint: CHEST PAIN, SINUS INFECTION Time Seen by Provider: 02/26/21 07:35 Source of Information: Reports: Patient History Limitations: Reports: No Limitations - History of Present Illness INITIAL COMMENTS - FREE TEXT/NARRATIVE: 55-year-old female past medical history GERD, hiatal hernia presents for multiple complaints. Patient states that she has been dealing with a sinus infection for over 2 weeks and has been on a course of antibiotics but it seems like it is not going away. Since yesterday evening she has been having mid substernal chest pain described as sharp and stabbing and pressure-like It is associated with shortness of breath, nausea, a couple episodes of emesis with some streaking bright red blood. Patient also describes a midepigastric abdominal pain. She states she has never had a stress test or cardiac catheterization but she has had abnormal EKGs. She states that she has had an EGD and notes that she had a hiatal hernia that was surgically repaired about 15 years ago. chest pain Pain Score (Numeric/FACES): 9 - Related Data Allergies Allergy/AdvReac Type Severity Reaction Status Date / Time codeine Allergy Unknown unknown Verified 11/05/20 09:44 cefaclor [From Ceclor] Allergy Anaphylactic Verified 11/05/20 09:44 Shock milk Allergy Drowsiness Verified 11/05/20 09:44 morphine Allergy Vomiting Verified 11/05/20 09:44 prednisone Allergy Hives Verified 11/05/20 09:44 sulfamethoxazole Allergy Anaphylactic Verified 11/05/20 09:44 [From Bactrim] Shock trimethoprim [From Bactrim] Allergy Anaphylactic Verified 11/05/20 09:44 Shock steroids Allergy Anaphylactic Uncoded 11/05/20 09:44 Shock Home Meds: Home Meds Furosemide [Lasix] 20 mg PO DAILY PRN 11/02/13 [History] Albuterol Sulfate [Ventolin Hfa] 1 puff INH ASDIRECTED PRN 05/21/16 [History] Pramipexole [Mirapex] 0.5 mg PO TID 05/26/16 [History] Cyclobenzaprine HCl 10 mg PO TID PRN 05/16/19 [History] Pantoprazole Sodium [Protonix] 40 mg PO BID #30 tablet. 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: Musculoskeletal History: Reports: Arthritis, Back Pain, Chronic, Fibromyalgia Neurological History: Reports: Concussion, Seizure, Vertigo Psychiatric History: Reports: Anxiety, Depression Endocrine/Metabolic History: Reports: Obesity/BMI 30+ Hematologic History: Reports: Blood Transfusion(s) Other Hematologic History: states had transfusion following her tonsillectomy Dermatologic History: Reports: None - Infectious Disease History Infectious Disease History: Reports: Chicken Pox - Past Surgical History Head Surgeries/Procedures: Reports: None HEENT Surgical History: Reports: Tonsillectomy Cardiovascular Surgical History: Reports: None Respiratory Surgical History: Reports: None GI Surgical History: Reports: Bariatric Procedure, Guy Fundoplication Other GI Surgeries/Procedures: tummy tuck Female Surgical History: Reports: Breast Reduction, Section, Hysterectomy, Salpingo-Oophorectomy Endocrine Surgical History: Reports: None Musculoskeletal Surgical History: Reports: Arthroscopic Knee, Carpal Tunnel Other Musculoskeletal Surgeries/Procedures:: hand surgery x6 including bilat. CTR, tendon releases and bone graft to left thumb, right knee arthroscopy x2 Dermatological Surgical History: Reports: Plastic Surgical Reconstruction/Repair Social & Family History - Family History Family Medical History: No Pertinent Family History - Caffeine Use Caffeine Use: Reports: None ED ROS GENERAL - Review of Systems Review Of Systems: Comprehensive ROS is negative, except as noted in HPI. ED EXAM, GENERAL - Physical Exam Exam: See Below Exam Limited By: No Limitations General Appearance: Alert, WD/WN, No Apparent Distress Ears: Hearing Grossly Normal Throat/Mouth: Normal Voice, No Airway Compromise Head: Atraumatic, Normocephalic Neck: Normal Inspection Respiratory/Chest: No Respiratory Distress, Lungs Clear, Normal Breath Sounds, No Accessory Muscle Use Cardiovascular: Normal Peripheral Pulses, Regular Rate, Rhythm, No Edema GI/Abdominal: Soft, Non-Tender Extremities: Normal Inspection Neurological: Alert, Normal Cognition, Normal Gait Psychiatric: Normal Affect, Normal Mood Skin Exam: Warm, Dry, Intact, Normal Color #1 Interpretation EKG Date: 02/26/21 Time: 07:47 Rhythm: NSR Rate (Beats/Min): 66 [place]: Normal P-Wave: Present QRS: Normal ST-T: Normal QT: Normal WA/PQ Interval: 166 EKG Interpretation Comments: normal EKG Course - Vital Signs Last Recorded V/S: Last Vital Signs Temp 97.0 F 02/26/21 07:47 Pulse 69 02/26/21 09:28 Resp 18 02/26/21 09:28 BP 179/104 H 02/26/21 09:28 Pulse Ox 98 02/26/21 09:28 - Orders/Labs/Meds Orders: Active Orders 24 hr Category Date Time Status Cardiac Monitoring [RC] . DIRECTED Care 02/26/21 08:03 Active Sodium Chloride 0.9% [Saline Flush] Med 02/26/21 08:03 Active 10 ml FLUSH ASDIRECTED PRN Sodium Chloride 0.9% [Saline Flush] Med 02/26/21 08:03 Active 2.5 ml FLUSH ASDIRECTED PRN Saline Lock Insert [OM.PC] Stat Oth 02/26/21 08:03 Ordered Medication Orders Sodium Chloride (Sodium Chloride 0.9% 10 Ml Syringe) 10 ml FLUSH ASDIRECTED PRN PRN Reason: Keep Vein Open Last Admin: 02/26/21 08:23 Dose: 10 ml Documented by: [id number] Sodium Chloride (Sodium Chloride 0.9% 2.5 Ml Syringe) 2.5 ml FLUSH ASDIRECTED PRN PRN Reason: Keep Vein Open Labs: Laboratory Tests 02/26/21 02/26/21 02/26/21 Range/Units 08:29 08:29 08:29 WBC 5.88 (4.0-11.0) K/uL RBC 4.88 (4.30-5.90) M/uL Hgb 15.2 (12.0-16.0) g/dL Hct 43.6 (36.0-46.0) % MCV 89.3 (80.0-98.0) fL MCH 31.1 (27.0-32.0) pg MCHC 34.9 (31.0-37.0) g/dL RDW Std Deviation 39.7 (28.0-62.0) fl RDW Coeff of Smita 12 (11.0-15.0) % Plt Count 263 (150-400) K/uL MPV 9.70 (7.40-12.00) fL Neut % (Auto) 67.9 (48.0-80.0) % Lymph % (Auto) 24.0 (16.0-40.0) % [place] % (Auto) 7.0 (0.0-15.0) % Eos % (Auto) 0.9 (0.0-7.0) % Baso % (Auto) 0.2 (0.0-1.5) % Neut # (Auto) 4.0 (1.4-5.7) K/uL Lymph # (Auto) 1.4 (0.6-2.4) K/uL [place] # (Auto) 0.4 (0.0-0.8) K/uL Eos # (Auto) 0.1 (0.0-0.7) K/uL Baso # (Auto) 0.0 (0.0-0.1) K/uL Nucleated RBC % 0.0 /100WBC Nucleated RBCs # 0 K/uL D-Dimer, Quantitative 0.43 (0.0-0.50) mg/L FEU Sodium 136 (136-145) mmol/L Potassium 4.0 (3.5-5.1) mmol/L Chloride 100 (98-107) mmol/L Carbon Dioxide 26.3 (21.0-32.0) mmol/L BUN 12 (7.0-18.0) mg/dL Creatinine 0.7 (0.6-1.0) mg/dL Est Cr Clr Drug Dosing TNP Estimated GFR (MDRD) > 60.0 ml/min Glucose 115 H (74-106) mg/dL Calcium 9.4 (8.5-10.1) mg/dL Magnesium 2.2 (1.8-2.4) mg/dL Total Bilirubin 0.4 (0.2-1.0) mg/dL AST 20 (15-37) IU/L ALT 42 (14-63) IU/L Alkaline Phosphatase 129 H (46-116) U/L Troponin I < 0.050 (0.000-0.056) ng/mL Total Protein 7.9 (6.4-8.2) g/dL Albumin 4.0 (3.4-5.0) g/dL Globulin 3.9 (2.6-4.0) g/dL Albumin/Globulin Ratio 1.0 (0.9-1.6) Lipase 102 (73-393) U/L SARS-CoV-2 RNA (LEYLA) (NEGATIVE) 02/26/21 Range/Units 08:50 WBC (4.0-11.0) K/uL RBC (4.30-5.90) M/uL Hgb (12.0-16.0) g/dL Hct (36.0-46.0) % MCV (80.0-98.0) fL MCH (27.0-32.0) pg MCHC (31.0-37.0) g/dL RDW Std Deviation (28.0-62.0) fl RDW Coeff of Smita (11.0-15.0) % Plt Count (150-400) K/uL MPV (7.40-12.00) fL Neut % (Auto) (48.0-80.0) % Lymph % (Auto) (16.0-40.0) % [place] % (Auto) (0.0-15.0) % Eos % (Auto) (0.0-7.0) % Baso % (Auto) (0.0-1.5) % Neut # (Auto) (1.4-5.7) K/uL Lymph # (Auto) (0.6-2.4) K/uL [place] # (Auto) (0.0-0.8) K/uL Eos # (Auto) (0.0-0.7) K/uL Baso # (Auto) (0.0-0.1) K/uL Nucleated RBC % /100WBC Nucleated RBCs # K/uL D-Dimer, Quantitative (0.0-0.50) mg/L FEU Sodium (136-145) mmol/L Potassium (3.5-5.1) mmol/L Chloride (98-107) mmol/L Carbon Dioxide (21.0-32.0) mmol/L BUN (7.0-18.0) mg/dL Creatinine (0.6-1.0) mg/dL Est Cr Clr Drug Dosing Estimated GFR (MDRD) ml/min Glucose (74-106) mg/dL Calcium (8.5-10.1) mg/dL Magnesium (1.8-2.4) mg/dL Total Bilirubin (0.2-1.0) mg/dL AST (15-37) IU/L ALT (14-63) IU/L Alkaline Phosphatase (46-116) U/L Troponin I (0.000-0.056) ng/mL Total Protein (6.4-8.2) g/dL Albumin (3.4-5.0) g/dL Globulin (2.6-4.0) g/dL Albumin/Globulin Ratio (0.9-1.6) Lipase (73-393) U/L SARS-CoV-2 RNA (LEYLA) NEGATIVE (NEGATIVE) Meds: Medications Generic Name Dose Route Start Last Admin Trade Name Silas PRN Reason Stop Dose Admin Sodium Chloride 10 ml 02/26/21 08:03 02/26/21 08:23 Sodium Chloride 0.9% 10 Ml Syringe FLUSH 10 ml ASDIRECTED PRN Administration Keep Vein Open Sodium Chloride 2.5 ml 02/26/21 08:03 Sodium Chloride 0.9% 2.5 Ml Syringe FLUSH ASDIRECTED PRN Keep Vein Open Discontinued Medications Generic Name Dose Route Start Last Admin Trade Name Silas PRN Reason Stop Dose Admin Aspirin 324 mg 02/26/21 08:03 02/26/21 08:20 Aspirin 81 Mg Tab.Chew PO 02/26/21 08:04 324 mg ONETIME ONE Administration Al Hydroxide/Mg Hydroxide 15 0 ml 02/26/21 08:03 02/26/21 08:20 ml/ Lidocaine HCl 5 ml PO 02/26/21 08:04 20 each ONETIME ONE Administration Famotidine 20 mg 02/26/21 08:03 02/26/21 08:21 Famotidine 20 Mg/2 Ml Sdv IVPUSH 02/26/21 08:04 20 mg ONETIME ONE Administration Sodium Chloride 1,000 mls @ 999 mls/hr 02/26/21 08:03 02/26/21 08:22 Normal Saline IV 02/26/21 09:03 999 mls/hr .Bolus ONE Administration Ondansetron HCl 4 mg 02/26/21 08:03 02/26/21 08:21 Ondansetron 4 Mg/2 Ml Sdv IVPUSH 02/26/21 08:04 4 mg ONETIME ONE Administration - Re-Assessments/Exams Free Text/Narrative Re-Assessment/Exam: 02/26/21 08:10 Patient presents with several symptoms. Will give symptomatic relief medications. Will give aspirin. Will get labs including cardiac enzymes. Will give GI cocktail and Pepcid. Will give Zofran. 02/26/21 10:09 Patient is feeling substantially better after GI cocktail. Will discharge with referral to ENT and GI. Low suspicion cardiac chest pain Departure - Departure Time of Disposition: 10:10 Disposition: Home, Self-Care 01 Condition: Good Clinical Impression: Chest pain Qualifiers: Chest pain type: unspecified Qualified Code(s): R07.9 - Chest pain, unspecified - Discharge Information Instructions: Nonspecific Chest Pain, Adult Referrals: Corrina Jones DO [Primary Care Provider] - Forms: ED Department Discharge Additional Instructions: You can follow-up with Dr. Larkin ENT (ear nose and throat) doctor for further workup of your sinus issues: Dr. Nikolas Larkin [facility], [address] [place] [phone] Bhavesh Camacho [facility] [address] [place] [address] You can take over the counter Maalox which is essentially the same medication you were given in the ER and had such relief of your symptoms. The medication in the ER also included viscous lidocaine, but we typically dont' like to send people home with this medication as it is not good to take long-term. You could consider follow-up with a GI physician as your symptoms seemed to resolve with GI medications; we do not have a local GI, but [facility] does have GI services available. [facility] [address] [place] [address] The following information is given to patients seen in the emergency department who are being discharged to home. This information is to outline your options for follow-up care. We provide all patients seen in our emergency department with a follow-up referral. The need for follow-up, as well as the timing and circumstances, are variable depending upon the specifics of your emergency department visit. If you don't have a primary care physician on staff, we will provide you with a referral. We always advise you to contact your personal physician following an emergency department visit to inform them of the circumstance of the visit and for follow-up with them and/or the need for any referrals to a consulting specialist. The emergency department will also refer you to a specialist when appropriate. This referral assures that you have the opportunity for follow-up care with a specialist. All of these measure are taken in an effort to provide you with optimal care, which includes your follow-up. Under all circumstances we always encourage you to contact your private physician who remains a resource for coordinating your care. When calling for follow-up care, please make the office aware that this follow-up is from your recent emergency room visit. If for any reason you are refused follow-up, please contact the [facility] at and asked to speak to the emergency department charge nurse. Please follow up with your primary care physician. If you do not have a primary care physician, see below: [facility] [address] [place] [id number] [facility] [address] [place] [id number] [facility] [address] [place] [id number] Sepsis Event Note (ED) - Focused Exam Vital Signs: Vital Signs Temp Pulse Resp BP Pulse Ox 02/26/21 09:28 69 18 179/104 H 98 02/26/21 07:47 97.0 F 80 18 184/100 H 98 - My Orders Last 24 Hours: My Active Orders 02/26/21 08:03 Cardiac Monitoring [RC] . DIRECTED Sodium Chloride 0.9% [Saline Flush] 10 ml FLUSH ASDIRECTED PRN Sodium Chloride 0.9% [Saline Flush] 2.5 ml FLUSH ASDIRECTED PRN Saline Lock Insert [OM.PC] Stat - Assessment/Plan Last 24 Hours: My Active Orders 02/26/21 08:03 Cardiac Monitoring [RC] . DIRECTED Sodium Chloride 0.9% [Saline Flush] 10 ml FLUSH ASDIRECTED PRN Sodium Chloride 0.9% [Saline Flush] 2.5 ml FLUSH ASDIRECTED PRN Saline Lock Insert [OM.PC] Stat
[2021-02-26] MEDS ORDERED: Sodium Chloride 0.9% 2.5 ML Syringe FLUSH PRN (08:03)
[2021-02-26] MEDS ORDERED: Aspirin 81 MG Tab.Chew PO ONE (08:03)
[2021-02-26] MEDS ORDERED: Sodium Chloride 0.9% 10 ML Syringe FLUSH PRN (08:03)
[2021-02-26] MEDS ORDERED: Sodium Chloride 0.9% 1,000 ML IV ONE (08:03)
[2021-02-26] MEDS ORDERED: Ondansetron 4 MG/2 ML SDV IVPUSH ONE (08:03)
[2021-02-26] MEDS ORDERED: Famotidine 20 MG/2 ML SDV IVPUSH ONE (08:03)
[2021-02-26] MEDS ORDERED: Alum Hydrox/Mag Hydrox/Simeth 15 ML, Lidocaine 2% 5 ML PO ONE ×2 (08:03)
[2021-02-26 09:18] LABS: BLOOD UREA NITROGEN,BUN 12 mg/dL (7.0-18.0); CARBON DIOXIDE,CO2 26.3 mmol/L (21.0-32.0); CHLORIDE,CL 100 mmol/L (98-107); GLUCOSE RANDOM 115 mg/dL (74-106); LIPASE 102 U/L (73-393); SODIUM,NA 136 mmol/L (136-145)
--- NOTE | 2021-02-26 09:38 | CR ---
INDICATION: Chest pain TECHNIQUE: Chest 1 views COMPARISON: November 05, 2020 FINDINGS: Cardiovascular and mediastinum: Heart size and vasculature are normal in caliber and appearance. Lungs and pleural spaces: Lungs are clear. No sign of infiltrate or mass. No sign of pleural effusion. No pneumothorax. Bones and soft tissues: No significant findings. IMPRESSION: No acute findings and no significant changes from the prior exam. Dictated by Rishi Carbajal MD @ 02/26/2021 9:36:31 AM (Electronically Signed)
[2021-02-26 10:38] VITALS: BP 151/106; PULSE 66
== END 2021-02-26 10:25 | disposition home or self-care (01) ==
LOC: MW.ED 07:32
DX: R07.2 Precordial pain (principal); K21.9 Gastro-esophageal reflux disease without esophagitis; I10 Essential (primary) hypertension; E66.9 Obesity, unspecified; Z68.30 Body mass index [BMI] 30.0-30.9, adult; Z88.5 Allergy status to narcotic agent; Z91.011 Allergy to milk products; Z88.8 Allergy status to other drugs, medicaments and biological substances; Z88.1 Allergy status to other antibiotic agents; Z20.822 Contact with and (suspected) exposure to COVID-19
CPT/HCPCS: 36415; 71045; 80053; 83690; 83735; 84484; 85025; 85379; 87635; 93005; 96374; 96375; 99285; A9270; J2405; J3490; J7030; U0002

== ENCOUNTER 2021-11-21 14:13 | Emergency (ER) | payer BC ==
[2021-11-21] MEDS ORDERED: Albuterol/Ipratropium 3.0-0.5 MG/3 ML Neb Soln NEB ONE ×2 (14:47→14:48)
[2021-11-21 15:58] LABS: BLOOD UREA NITROGEN,BUN 21 mg/dL (7.0-18.0); CHLORIDE,CL 107 mmol/L (98-107); GLUCOSE RANDOM 101 mg/dL (74-106); POTASSIUM,K 4.2 mmol/L (3.5-5.1); SODIUM,NA 142 mmol/L (136-145)
[2021-11-21 16:59] LABS: CORONAVIRUS COVID-19 NAA NEGATIVE (NEGATIVE)
[2021-11-21 17:26] VITALS: PULSE 72
[2021-11-21 17:41] LABS: INFLUENZA A NAA NEGATIVE (NEGATIVE); INFLUENZA B NAA NEGATIVE (NEGATIVE)
[2021-11-21 17:59] VITALS: BP 136/78
== END 2021-11-21 17:57 | disposition home or self-care (01) ==
LOC: MW.ED 14:13
DX: J40 Bronchitis, not specified as acute or chronic (principal); I10 Essential (primary) hypertension; K21.9 Gastro-esophageal reflux disease without esophagitis; E66.9 Obesity, unspecified; Z68.34 Body mass index [BMI] 34.0-34.9, adult; Z88.5 Allergy status to narcotic agent; Z91.011 Allergy to milk products; Z88.8 Allergy status to other drugs, medicaments and biological substances; Z88.1 Allergy status to other antibiotic agents; Z79.899 Other long term (current) drug therapy; Z20.822 Contact with and (suspected) exposure to COVID-19
CPT/HCPCS: 0240U; 36415; 71045; 80053; 82803; 83605; 83735; 84484; 85025; 85379; 93005; 99284; 99283; J7620-GY

== ENCOUNTER 2022-10-19 21:00 | Emergency (ER) | payer BC, OTHER ==
[2022-10-19] MEDS ORDERED: Diphtheria/Tetanus Toxoids,Adult (Td) 0.5 ML Syringe IM ONE (21:24)
[2022-10-19] MEDS ORDERED: Sodium Chloride 0.9% 20 ML SDV IV PRN (21:24)
[2022-10-19] MEDS ORDERED: HYDROmorphone 2 MG/ML Syringe IVPUSH ONE (21:24)
[2022-10-19] MEDS ORDERED: Sodium Chloride 0.9% 2.5 ML Syringe FLUSH PRN (21:24)
[2022-10-19] MEDS ORDERED: Sodium Chloride 0.9% 10 ML Syringe FLUSH PRN (21:24)
[2022-10-19] MEDS ORDERED: Iopamidol 755 MG/ML 500 ML Multipack Bottle IVPUSH STA (22:02)
[2022-10-19 23:00] LABS: BLOOD UREA NITROGEN,BUN 18 mg/dL (7.0-18.0); CARBON DIOXIDE,CO2 22.2 mmol/L (21.0-32.0); CHLORIDE,CL 105 mmol/L (98-107); GLUCOSE RANDOM 123 mg/dL (74-106); POTASSIUM,K 4.1 mmol/L (3.5-5.1); SODIUM,NA 140 mmol/L (136-145)
[2022-10-19 23:03] LABS: ESTIMATED GFR 101 mL/min (>60)
[2022-10-19 23:22] VITALS: BP 224/105; PULSE 82
== END 2022-10-19 23:22 | disposition home or self-care (01) ==
LOC: MW.ED 21:00
DX: S20.211A Contusion of right front wall of thorax, initial encounter (principal); I10 Essential (primary) hypertension; E66.9 Obesity, unspecified; Z88.5 Allergy status to narcotic agent; Z91.011 Allergy to milk products; Z88.1 Allergy status to other antibiotic agents; Z68.38 Body mass index [BMI] 38.0-38.9, adult; Z88.8 Allergy status to other drugs, medicaments and biological substances; W05.1XXA Fall from non-moving nonmotorized scooter, initial encounter
CPT/HCPCS: 36415; 71045; 71260; 74177; 80053; 80307; 85025; 85610; 99285; Q9967

== ENCOUNTER 2023-04-24 02:18 | Emergency (ER) | payer OTHER ==
[2023-04-24] MEDS ORDERED: Sodium Chloride 0.9% 10 ML Syringe FLUSH PRN (02:48)
[2023-04-24] MEDS ORDERED: Sodium Chloride 0.9% 2.5 ML Syringe FLUSH PRN (02:48)
[2023-04-24 03:26] LABS: BASOPHILS ABSOLUTE AUTO 0.06 K/uL (0.00-0.20); BASOPHILS PERCENT AUTO 0.6 % (0.0-1.0); EOSINOPHILS ABSOLUTE AUTO 0.46 K/uL (0.00-0.45); EOSINOPHILS PERCENT AUTO 4.8 % (0.0-6.0); HEMATOCRIT 39.2 % (37.0-47.0); HEMOGLOBIN 13.8 g/dL (12.0-16.0); IMMATURE GRAN ABSOLUTE AUTO 0.03 K/uL (0.00-0.05); IMMATURE GRAN PERCENT AUTO 0.3 % (0.0-0.4); LYMPHOCYTES ABSOLUTE AUTO 2.23 K/uL (1.00-4.80); LYMPHOCYTES PERCENT AUTO 23.4 % (24.0-44.0); MEAN CORPUSCULAR HEMOGLOBIN 31.7 pg (28.0-32.0); MEAN CORPUSCULAR HGB CONC 35.2 g/dL (32.0-36.0); MEAN CORPUSCULAR VOLUME 89.9 fL (83.0-99.0); MONOCYTES ABSOLUTE AUTO 0.56 K/uL (0.00-0.80); MONOCYTES PERCENT AUTO 5.9 % (0.0-8.0); NEUTROPHILS ABSOLUTE AUTO 6.18 K/uL (1.80-7.70); PLATELET COUNT,PLT 289 K/uL (150-400); RED BLOOD CELL COUNT 4.36 M/uL (4.10-5.30); WHITE BLOOD CELL COUNT,WBC 9.52 K/uL (3.9-11.3)
[2023-04-24 03:30] LABS: CALCIUM 9.1 mg/dL (8.5-10.1); CARBON DIOXIDE,CO2 24.1 mmol/L (21.0-32.0); CREATININE 0.9 mg/dL (0.6-1.0); EST CRCL DRUG DOSING (CG) 57.05 mL/min; POTASSIUM,K 3.8 mmol/L (3.5-5.1)
[2023-04-24] MEDS ORDERED: Aspirin 325 MG Tab PO ONE (04:03)
[2023-04-24 04:58] VITALS: BP 175/91; PULSE 81
== END 2023-04-24 04:57 | disposition home or self-care (01) ==
LOC: MW.ED 02:18
DX: R05.9 Cough, unspecified (principal); R07.9 Chest pain, unspecified; I10 Essential (primary) hypertension; J45.909 Unspecified asthma, uncomplicated; K21.9 Gastro-esophageal reflux disease without esophagitis; E66.9 Obesity, unspecified; Z68.41 Body mass index [BMI] 40.0-44.9, adult; Z88.5 Allergy status to narcotic agent; Z88.1 Allergy status to other antibiotic agents; Z88.8 Allergy status to other drugs, medicaments and biological substances; Z88.2 Allergy status to sulfonamides; Z79.899 Other long term (current) drug therapy
CPT/HCPCS: 36415; 71046; 80048; 84484; 85025; 93005; 99285; A9270; J3490; 93010; 99283

== ENCOUNTER 2024-02-21 10:14 | Day surgery (SDC) | payer OTHER ==
[~2024-02-21 10:14] MED LIST: Sodium Chloride 0.9% 10 ML Syringe FLUSH PRN; Sodium Chloride 0.9% 2.5 ML Syringe FLUSH PRN; Sodium Chloride 0.9% 20 ML SDV IV PRN
[2024-02-21] MEDS: Lactated Ringers 1,000 ML IV SCH (10:51)
[2024-02-21] MEDS ORDERED: dexmedeTOMIDine HCl 200 MCG/2 ML SDV ONE ×2 (12:03)
[2024-02-21] MEDS ORDERED: propofoL 50 ML ONE (12:03)
[2024-02-21] MEDS ORDERED: Propofol 200 MG/20 ML SDV ONE (12:32)
[2024-02-21 13:05] VITALS: PULSE 58
[2024-02-21 13:17] VITALS: BP 153/73
== END 2024-02-21 13:23 | disposition home or self-care (01) ==
LOC: MW.SDS 10:14
PROVIDERS: ATTEND Surgery
DX: Z12.11 Encounter for screening for malignant neoplasm of colon (principal); K44.9 Diaphragmatic hernia without obstruction or gangrene; K57.30 Diverticulosis of large intestine without perforation or abscess without bleeding; K21.9 Gastro-esophageal reflux disease without esophagitis; K63.5 Polyp of colon; J45.909 Unspecified asthma, uncomplicated; E11.9 Type 2 diabetes mellitus without complications; Z98.84 Bariatric surgery status; Z79.899 Other long term (current) drug therapy; Z88.2 Allergy status to sulfonamides; Z88.0 Allergy status to penicillin; Z88.5 Allergy status to narcotic agent; Z91.011 Allergy to milk products
CPT/HCPCS: 43239; 45380; J2704; J7120; 00813; J3490